=== PATIENT | male | born 1935 | race Caucasian/White ===

== ENCOUNTER 2016-04-24 15:12 | Emergency (ER) | payer MEDICARE, OTHER ==
[2016-04-24] MEDS ORDERED: Bacitracin Oint 1 GM U/D Packet TOP ONE (15:27)
[2016-04-24 16:05] LABS: CHLORIDE,CL 104 mmol/L (98-107); SODIUM,NA 139 mmol/L (136-145)
[2016-04-24] MEDS ORDERED: Lidocaine 1% with EPINEPHrine 1:100,000 20 ML MDV INFILT ONE (16:16)
[2016-04-24 17:07] VITALS: BP 142/82
--- NOTE | 2016-04-24 18:17 | ER ---
Date of Service: 04/24/2016 SUBJECTIVE: Wiliam presents to the emergency room with a fall and laceration to his forehead. The patient was initially seen by Juma Munoz. Please refer to his documentation regarding history of present illness, physical exam, and past medical history. The patient had his labs drawn and was back from CT as I came in for shift change. LABORATORY DATA: WBC is 6.8, hemoglobin is 11.5, platelets are 193. Chemistry; sodium is 139, potassium is 4.6, chloride is 104, bicarb is 26, BUN is 17, creatinine is 1.3, GFR is 53, glucose is 147, calcium is 8.7, corrected calcium is 9.1, magnesium is 2.1, total bilirubin is 0.5, AST is 32, ALT is 31, alkaline phosphatase is 100, total protein is 7.2, albumin is 3.5. CT scan of the patient's brain was obtained. It did have evidence of some enlargement of the ventricles which was a chronic finding. 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 There was no CT for comparison but the radiologist felt that there were no findings of acute pathology on the scan. A 12-lead EKG had been obtained and reviewed by Juma Munoz. It did show a left bundle-branch block at a rate of [address] or T-wave abnormalities. EMERGENCY ROOM COURSE: The laceration was cleansed with Shur-Clens and chlorhexidine. The laceration was anesthetized with a total of 3 mL of 1% lidocaine with epi. The patient's face was prepped and draped in usual sterile fashion. A total of 3 interrupted 4-0 nylon sutures was used to close the laceration. The laceration was bleeding briskly but excellent hemostasis and wound approximation was achieved with suturing. There was some small abrasion around the laceration that continued to ooze but was controlled with a large Band-Aid. The patient tolerated this well. He remained stable in my care in the emergency room. ASSESSMENT: Fall with 1 cm laceration to forehead. PLAN: The patient will be discharged. Sutures out in 12 days. He is to return to the emergency room if he develops any headache, confusion, difficulties with speech, ambulation, or other worrisome signs or symptoms. He should keep the bandage on the laceration for approximately 24 hours and then keep the area open to the air to improve healing. All questions were answered. MWK: 04/24/2016 16:53:53 MODL: 04/24/2016 18:13:01 /[id number]
--- NOTE | 2016-04-27 10:01 | ER ---
Date of Service: 04/24/2016 REASON FOR VISIT: Fall. SUBJECTIVE/HISTORY: An 80-year-old white male, brought in by EMS. He sustained a fall at the [employer] this afternoon when he was trying to get inside. He told the EMS that he stumbled and fell and hit his head against one of the brick pillars. He told me that he got dizzy and fell. He denied any loss of consciousness, did not pass out. Does complain of a headache. Has a small laceration above the right eye and forehead area just above the eyebrow. PAST MEDICAL HISTORY: Reviewed on the electronic health record and includes hypertension, diabetes, dementia, past history of C. diff. MEDICATIONS: Noted in electronic health record, and they are yet to be updated from the [facility]. ALLERGIES: Intolerance to statins. SOCIAL HISTORY: The patient resides at the [facility] in [place]. Medication list from them is pending. REVIEW OF SYSTEMS: He denies any arm or leg discomfort. No numbness or tingling reported. OBJECTIVE: General: He is alert, lying in bed. Vital Signs: He vital signs in the EMS were stable. Blood pressure 172/87, pulse of 63, O2 saturation 98% on room air. HEENT: Pupils are unremarkable. TMs are negative. Throat is clear. NECK: No adenopathy. C-spine is nontender. Normal range of motion of the neck without pain. HEART: Regular rate and rhythm. LUNGS: Clear to auscultation. Chest wall is nontender. ABDOMEN: Soft, nontender. No masses. EXTREMITIES: Warm and dry. There is trace to 1+ lower peripheral edema. NEUROLOGICAL: Cranial nerves intact. Sensation is intact. Motor function is intact. He moves all 4 extremities equally. LABORATORY DATA: White count 6.8, hemoglobin 11.5. Other labs are pending. EKG shows a sinus rhythm, rate of 59, left bundle branch block. He has had a left bundle branch block on previous EKGs. CT scan of his head is pending. He does have a 1-cm laceration just above the right eyebrow on the forehead. This is yet to be repaired. ASSESSMENT: 1. Fall with head injury. 2. Laceration. PLAN: The patient is signed out to Juan Alberto Perales at 1600 hours. He will review the EKG, other labs, repair the laceration and make final disposition. See his dictation for additional details. FM: 04/24/2016 15:56:30 MODL: 04/24/2016 19:10:29 /[id number]
== END 2016-04-24 17:05 | disposition home or self-care (01) ==
LOC: VM.ED 15:12
DX: S01.81XA Laceration without foreign body of other part of head, initial encounter (principal); S09.90XA Unspecified injury of head, initial encounter; I10 Essential (primary) hypertension; E11.9 Type 2 diabetes mellitus without complications; F03.90 Unspecified dementia, unspecified severity, without behavioral disturbance, psychotic disturbance, mood disturbance, and anxiety; W18.09XA Striking against other object with subsequent fall, initial encounter
CPT/HCPCS: 12011; 36415; 70450; 80053; 83735; 85025; 93005; 94760; 99282-GF-25; 99285

== ENCOUNTER 2016-07-24 05:40 | Observation (INO) | payer MEDICARE, OTHER ==
--- NOTE | 2016-07-24 06:21 | EDM.PDOC ---
[id number] 4d Frequent falls, numerous skin tears Time Seen by Provider: 07/24/16 05:50 Source of Information: Reports: Patient, EMS Notes Reviewed, Old Records, RN, RN Notes Reviewed History Limitations: Reports: No Limitations - History of Present Illness INITIAL COMMENTS - FREE TEXT/NARRATIVE: Patient is brought to the ED at [facility] via EMS from Assisted Living for concerns of frequent falling over the past 12-24 hours. According to staff, the patient has fallen several times. Patient was found this morning sleeping on the bathroom floor. EMS was called and patient sent to ED for further evaluation. Patient is a poor historian. Patient thinks he is falling because he has "bad eye sight." Patient denies any pain. No headache. Patient states his legs chronically feel weak. Patient denies any problems with BM's or urination. Patient believes he is eating and drinking well. Patient states he was recently started on a new medication and he thinks the new med is causing some balance issues. Assisted living staff state they believe he seems more confused. Onset: Unknown/Unsure - Related Data Allergies Allergy/AdvReac Type Severity Reaction Status Date / Time Ohbeklu-Iqf-Tvy Reductase AdvReac Jaundice Verified 07/24/16 06:04 Inhibitor Home Meds: Home Meds Aspirin [Ecotrin] 81 mg PO DAILY 07/29/14 [History] Dextromethorphan/guaiFENesin [Robitussin DM] 10 ml PO QID PRN 07/29/14 [History] Metoprolol Tartrate [Lopressor] 75 mg PO BID 07/29/14 [History] Sertraline [Zoloft] 100 mg PO DAILY 07/29/14 [History] Nitroglycerin [Nitro-Dur 0.4 MG/Hr] 0.4 mg TRDERM DAILY #7 patch 08/01/14 [Rx] hydrALAZINE [Apresoline] 25 mg PO TID 08/26/14 [History] Lisinopril 40 mg PO DAILY #1 08/29/14 [Rx] Magnesium Hydroxide [Milk of Magnesia] 30 ml PO DAILY PRN 1 Days 08/29/14 [Rx] Acetaminophen [Acetaminophen Extra Strength] 1,000 mg PO Q6H PRN 05/20/15 [ History] Finasteride [Proscar] 5 mg PO BEDTIME 05/20/15 [History] Magnesium Oxide 420 mg PO DAILY 05/20/15 [History] Tamsulosin [Flomax] 0.4 mg PO DAILY 05/20/15 [History] Pantoprazole [ProTONIX] 40 mg PO DAILY@0700 #30 tab.cr 06/04/15 [Rx] Remove Patch 1 ea TRDERM BEDTIME each 07/06/15 [Rx] Chlorpheniramine Maleate 4 mg PO DAILY PRN 07/24/16 [History] Insulin Glarg,Human.Rec.Analog [LantUS] 10 unit SUBCUT BEDTIME 07/24/16 [History ] L.acidoph,Paracasei, B.lactis [Probiotic] 1 each PO DAILY 07/24/16 [History] Levofloxacin 500 mg PO BEDTIME 07/24/16 [History] Loperamide [Imodium] 2 mg PO Q4H PRN 07/24/16 [History] Potassium Chloride [Klor-Con M20] 40 meq PO BID 07/24/16 [History] Sodium Chloride 0.65% [[place] Nasal [place]] 1 spray NASBOTH DAILY PRN 07/24/16 [ History] Vit A/Vit C/Vit E/Zinc/Copper [Preservision] 1 tab PO BID 07/24/16 [History] amLODIPine [Norvasc] 5 mg PO DAILY 07/24/16 [History] Past Medical History HEENT History: Reports: Hard of Hearing, Macular Degeneration Cardiovascular History: Reports: High Cholesterol, Hypertension Gastrointestinal History: Reports: Colon Polyp, Diverticulosis Other Gastrointestinal History: pancreas disease. dysphagia Genitourinary History: Reports: Diabetic Nephropathy, Prostate Disorder Musculoskeletal History: Reports: Back Pain, Chronic Other Musculoskeletal History: weakness Endocrine/Metabolic History: Reports: Diabetes, Type II - Infectious Disease History Infectious Disease History: Reports: C-Difficile - Past Surgical History Male Surgical History: Reports: TURP-Transurethral Resection of Prostate Social & Family History - Family History Family Medical History: Noncontributory - Tobacco Use Smoking Status *Q: Never Smoker Second Hand Smoke Exposure: No - Alcohol Use Days Per Week of Alcohol Use: 1 Number of Drinks Per Day: 1 Total Drinks Per Week: 1 - Recreational Drug Use Recreational Drug Use: No - Living Situation & Occupation Living situation: Reports: Single, Assisted Living Occupation: Retired ED ROS GENERAL - Review of Systems Review Of Systems: See Below Constitutional: Reports: Weakness. Denies: Fever, Chills Respiratory: Denies: Shortness of Breath, Cough Cardiovascular: Denies: Chest Pain, Palpitations GI/Abdominal: Denies: Abdominal Pain, Diarrhea, Nausea, Vomiting Skin: Reports: Wound (skin tears) Neurological: Reports: Weakness. Denies: Headache, Numbness, Paresthesia, Tingling ED EXAM, GENERAL - Physical Exam Exam: See Below Exam Limited By: No Limitations General Appearance: Alert, No Apparent Distress Eye Exam: Bilateral Eye: Normal Inspection, PERRL Ears: Normal External Exam, Normal Canal, Normal TMs Ear Exam: Bilateral Ear: TM normal Nose: Normal Inspection, Normal Mucosa, No Blood Throat/Mouth: Normal Inspection, Normal Oropharynx, No Airway Compromise Head: Other (Skin tear behind left ear) Neck: Supple Respiratory/Chest: No Respiratory Distress, Lungs Clear, Normal Breath Sounds Cardiovascular: Regular Rate, Rhythm GI/Abdominal: Normal Bowel Sounds, Soft, Non-Tender Neurological: Alert, Disoriented (Oriented to place and self, but disoriented to time) Skin Exam: Warm, Dry, Normal Color, No Rash, Wound/Incision (multiple skin tears over both arms) Course - Vital Signs Last Recorded V/S: Last Vital Signs Temp 37.4 C 07/25/16 05:53 Pulse 65 07/25/16 05:53 Resp 24 H 07/25/16 05:53 BP 154/64 H 07/25/16 05:53 Pulse Ox 96 07/25/16 05:53 - Orders/Labs/Meds Orders: Active Orders 24 hr Category Date Time Status Chest 1V Frontal [CR] Stat Exams 07/24/16 09:40 Taken Head wo Cont [CT] Stat Exams 07/24/16 06:40 Taken Medication Orders Acetaminophen (Tylenol Extra Strength) 1,000 mg PO Q6H PRN PRN Reason: Pain (mild 1-3) Amlodipine Besylate (Norvasc) 5 mg PO DAILY CORNELIUS Aspirin (Halfprin) 81 mg PO DAILY CORNELIUS Finasteride (Proscar) 5 mg PO BEDTIME CORNELIUS Last Admin: 07/24/16 20:17 Dose: 5 mg Guaifenesin/Dextromethorphan (Robitussin Dm) 10 ml PO QID PRN PRN Reason: Cough Lactobacillus Rhamnosus (Culturelle) 1 cap PO DAILY CORNELIUS Levofloxacin (Levaquin) 500 mg PO BEDTIME [facility] Last Admin: 07/24/16 20:15 Dose: 500 mg Loperamide HCl (Imodium) 2 mg PO Q4H PRN PRN Reason: Diarrhea Magnesium Hydroxide (Milk Of Magnesia) 30 ml PO DAILY PRN PRN Reason: Constipation Miscellaneous Information (Remove Patch) 1 ea TRDERM BEDTIME [facility] Last Admin: 07/24/16 20:17 Dose: 1 ea Chlorpheniramine Maleate 4 Mg (Own Supply) 0 mg PO DAILY PRN PRN Reason: Allergies Insulin Glarg,Human. Rec.Analog (Own Supply) 0 unit SUBCUT BEDTIME [facility] Last Admin: 07/24/16 20:16 Dose: 10 unit Vit A/Vit C/Vit E/Zinc/Copper [ Preservision] 1 tab PO BID [facility] Last Admin: 07/24/16 20:19 Dose: 1 tab Nitropatch 0.4mg ( (Own Supply)) 0.4 mg TOP DAILY [facility] Lisinopril 40mg ( (Own Supply)) 0 mg PO DAILY [facility] Hydralazine 25mg ( (Own Supply)) 0 mg PO TID@08,14,20 [facility] Last Admin: 07/24/16 20:16 Dose: 25 mg Admin: 07/24/16 15:35 Dose: 25 mg Metoprolol 75mg (Own (Supply)) 0 mg PO BID [facility] Last Admin: 07/24/16 20:17 Dose: 75 mg Magnesium 420mg (Own (Supply)) 1 tab PO DAILY [facility] Pantoprazole Sodium (Protonix) 40 mg PO DAILY@0700 [facility] Last Admin: 07/25/16 06:02 Dose: 40 mg Potassium Chloride (Klor-Con M20) 40 meq PO BID [facility] Sertraline HCl (Zoloft) 100 mg PO DAILY [facility] Sodium Chloride ([place] Nasal [place]) 0 ml NASBOTH DAILY PRN PRN Reason: Nasal Dryness Sodium Chloride (Saline Flush) 10 ml FLUSH ASDIRECTED PRN PRN Reason: Keep Vein Open Tamsulosin HCl (Flomax) 0.4 mg PO DAILY [facility] Labs: Laboratory Tests 07/24/16 07/24/16 07/24/16 Range/Units 06:50 06:50 09:17 WBC 15.1 H (4.0-10.0) x10^3/uL RBC 3.75 L (4.5-6.0) x10^6/uL Hgb 11.8 L (14.0-18.0) g/dL Hct 35.5 L (40.0-52.0) % MCV 94.7 H D (78.0-93.0) fL MCH 31.5 (26.0-32.0) pg MCHC 33.2 (32.0-36.0) g/dL RDW Coeff of Carlito 14.9 (10.0-15.0) % Plt Count 214 (130-400) x10^3/uL Neut % (Auto) 90.6 H (50.0-80.0) % Lymph % (Auto) 3.3 L (25.0-50.0) % Rush % (Auto) 5.9 (2.0-11.0) % Eos % (Auto) 0.1 (0.0-4.0) % Baso % (Auto) 0.1 L (0.2-1.2) % Sodium 141 (136-145) mmol/L Potassium 5.7 H (3.5-5.1) mmol/L Chloride 107 (98-107) mmol/L Carbon Dioxide 20 L (21-32) mmol/L BUN 34 H (7-18) mg/dL Creatinine 2.1 H (0.70-1.30) mg/dL Est Cr Clr Drug Dosing TNP Estimated GFR (MDRD) 30 Glucose 112 H (74-106) mg/dL Calcium 9.2 (8.5-10.1) mg/dL Urine Color Dark yellow H (YELLOW) Urine Appearance Clear (CLEAR) Urine pH 5.5 (5.0-8.0) Ur Specific [place] 1.020 Urine Protein 100 H (NEGATIVE) mg/dL Urine Glucose (UA) Negative (NEGATIVE) mg/dL Urine Ketones 15 H (NEGATIVE) mg/dL Urine Occult Blood Moderate H (NEGATIVE) Urine Nitrite Negative (NEGATIVE) Urine Bilirubin Negative (NEGATIVE) Urine Urobilinogen 0.2 (0.2) EU/dL Ur Leukocyte Esterase Negative (NEGATIVE) Urine RBC 5-10 H (NOT SEEN) /HPF Urine WBC 0-5 (NOT SEEN) /HPF Ur Squamous Epith Cells Many H (NEGATIVE) /HPF Urine Bacteria Not seen (NEGATIVE) /HPF Hyaline Casts Rare H (NEGATIVE) /HPF Urine Mucus Not seen (NEGATIVE) /LPF Meds: Medications Generic Name Dose Route Start Last Admin Trade Name Freq PRN Reason Stop Dose Admin Acetaminophen 1,000 mg 07/24/16 14:08 Tylenol Extra Strength PO Q6H PRN Pain (mild 1-3) Amlodipine Besylate 5 mg 07/25/16 08:00 Norvasc PO DAILY [facility] Aspirin 81 mg 07/25/16 08:00 Halfprin PO DAILY CORNELIUS Finasteride 5 mg 07/24/16 20:00 07/24/16 20:17 Proscar PO 5 mg BEDTIME CORNELIUS Administration Guaifenesin/Dextromethorphan 10 ml 07/24/16 14:08 Robitussin Dm PO QID PRN Cough Lactobacillus Rhamnosus 1 cap 07/25/16 08:00 Culturelle PO DAILY CORNELIUS Levofloxacin 500 mg 07/24/16 20:00 07/24/16 20:15 Levaquin PO 500 mg BEDTIME CORNELIUS Administration Loperamide HCl 2 mg 07/24/16 14:08 Imodium PO Q4H PRN Diarrhea Magnesium Hydroxide 30 ml 07/24/16 14:08 Milk Of Magnesia PO DAILY PRN Constipation Miscellaneous Information 1 ea 07/24/16 20:00 07/24/16 20:17 Remove Patch TRDERM 1 ea BEDTIME CORNELIUS Administration Chlorpheniramine 0 mg 07/24/16 14:08 Maleate 4 Mg (Own PO Supply) DAILY PRN Allergies Insulin Glarg,Human. 0 unit 07/24/16 20:00 07/24/16 20:16 Rec.Analog (Own SUBCUT 10 unit Supply) BEDTIME CORNELIUS Administration Vit A/Vit C/Vit E/ 1 tab 07/24/16 20:00 07/24/16 20:19 Zinc/Copper [ PO 1 tab Preservision] BID CORNELIUS Administration Nitropatch 0.4mg ( 0.4 mg 07/25/16 08:00 Own Supply) TOP DAILY CORENLIUS Lisinopril 40mg ( 0 mg 07/25/16 08:00 Own Supply) PO DAILY CORNELIUS Hydralazine 25mg ( 0 mg 07/24/16 14:45 07/24/16 20:16 Own Supply) PO 25 mg TID@08,14,20 CORNELIUS Administration Metoprolol 75mg (Own 0 mg 07/24/16 20:00 07/24/16 20:17 Supply) PO 75 mg BID CORNELIUS Administration Magnesium 420mg (Own 1 tab 07/25/16 08:00 Supply) PO DAILY CORNELIUS Pantoprazole Sodium 40 mg 07/25/16 07:00 07/25/16 06:02 Protonix PO 40 mg DAILY@0700 CORNELIUS Administration Potassium Chloride 40 meq 07/25/16 08:00 Klor-Con M20 PO BID CORNELIUS Sertraline HCl 100 mg 07/25/16 08:00 Zoloft PO DAILY CORNELIUS Sodium Chloride 0 ml 07/24/16 14:08 [place] Nasal [place] NASBOTH DAILY PRN Nasal Dryness Sodium Chloride 10 ml 07/24/16 14:16 Saline Flush FLUSH ASDIRECTED PRN Keep Vein Open Tamsulosin HCl 0.4 mg 07/25/16 08:00 Flomax PO DAILY CORNELIUS Discontinued Medications Generic Name Dose Route Start Last Admin Trade Name Freq PRN Reason Stop Dose Admin Sodium Chloride 1,000 mls @ 100 mls/hr 07/24/16 14:16 07/24/16 15:47 Normal Saline IV 07/25/16 00:15 100 mls/hr ONETIME ONE Administration Departure - Departure Time of Disposition: 11:45 Disposition: Refer to Observation Condition: fair Clinical Impression: Frequent falls, Confusion - Discharge Information - Problem List Review Problem List Initiated/Reviewed/Updated: Yes - My Orders Last 24 Hours: My Active Orders 07/24/16 06:40 Head wo Cont [CT] Stat - Assessment/Plan Last 24 Hours: My Active Orders 07/24/16 06:40 Head wo Cont [CT] Stat
[2016-07-24 07:09] LABS: CHLORIDE,CL 107 mmol/L (98-107); SODIUM,NA 141 mmol/L (136-145)
[2016-07-24] MEDS ORDERED: guaiFENesin/Dextromethorphan 100-10 MG/5 ML Soln 10 ML Cup PO PRN (14:08)
[2016-07-24] MEDS ORDERED: CHLORPHENIRAMINE MALEATE 4 MG PO PRN (14:08)
[2016-07-24] MEDS ORDERED: Loperamide 2 MG Cap PO PRN (14:08)
[2016-07-24] MEDS ORDERED: Magnesium Hydroxide 400 MG/5 ML Susp 30 ML Cup PO PRN (14:08)
[2016-07-24] MEDS ORDERED: Sodium Chloride 0.65% Nasal Spray 45 ML Bottle NASBOTH PRN (14:08)
[2016-07-24] MEDS ORDERED: Acetaminophen 500 MG Tab PO PRN (14:08)
[2016-07-24] MEDS ORDERED: Sodium Chloride 0.9% 1,000 ML IV ONE (14:16)
[2016-07-24] MEDS ORDERED: Sodium Chloride 0.9% 10 ML Syringe FLUSH PRN (14:16)
[2016-07-24] MEDS ORDERED: HYDRALAZINE 25 MG PO SCH (14:45)
[2016-07-24] MEDS: HYDRALAZINE 25 MG PO SCH ×2 (15:35→20:16)
[2016-07-24] MEDS ORDERED: METOPROLOL TARTRATE PO SCH (20:00)
[2016-07-24] MEDS: LEVOFLOXACIN 500 MG PO SCH (20:15)
[2016-07-24] MEDS: INSULIN GLARG HUMAN REC ANALOG SUBCUT SCH (20:16)
[2016-07-24] MEDS: METOPROLOL PO SCH (20:17)
[2016-07-24] MEDS: FINASTERIDE 5 MG PO SCH (20:17)
[2016-07-24] MEDS: Vit A/Vit C/Vit E/Zinc/Copper [Preservision] PO SCH (20:19)
[2016-07-25] MEDS: Pantoprazole 40 MG Tab.CR (OWN SUPPLY) PO SCH (06:02)
[2016-07-25] MEDS ORDERED: NITROGLYCERIN 0.4 MG/HR TRDERM SCH (08:00)
[2016-07-25] MEDS ORDERED: Lisinopril 20 MG Tab PO SCH (08:00)
[2016-07-25] MEDS ORDERED: Potassium Chloride 20 MEQ Tab.ER PO SCH (08:00)
[2016-07-25] MEDS ORDERED: Magnesium Oxide 400 MG Tab PO SCH (08:00)
[2016-07-25] MEDS: METOPROLOL PO SCH (08:44)
[2016-07-25] MEDS: MAGNESIUM 420 MG PO SCH (08:45)
[2016-07-25] MEDS: HYDRALAZINE 25 MG PO SCH ×3 (08:46→22:13)
[2016-07-25] MEDS: Aspirin 81 MG Tab.EC (OWN SUPPLY) PO SCH (08:46)
[2016-07-25] MEDS: AMLODIPINE 5 MG PO SCH (08:46)
[2016-07-25] MEDS: LISINOPRIL 40 MG PO SCH (08:47)
[2016-07-25] MEDS: Vit A/Vit C/Vit E/Zinc/Copper [Preservision] PO SCH ×2 (08:48→22:13)
[2016-07-25] MEDS: Tamsulosin 0.4 MG Cap.ER (OWN SUPPLY) PO SCH (08:48)
[2016-07-25] MEDS: NITROGLYCERIN 0.4 MG TOP SCH (08:49)
[2016-07-25] MEDS: Sertraline 100 MG Tab (OWN SUPPLY) PO SCH (08:50)
[2016-07-25] MEDS: Lactobacillus Rhamnosus GG (Probiotic) Cap PO SCH (08:52)
[2016-07-25] MEDS: Sodium Chloride 0.9% 1,000 ML IV SCH (14:10)
--- NOTE | 2016-07-25 14:36 | PCM.PN ---
- General Info Date of Service: 07/25/16 Admission Dx/Problem (Free Text): Acute confusion Frequent falls Subjective Update: Patient offers no specific complaints today. He is significantly confused. He denies any pain. No chest pain or SOB. No urinary or BM complaints. States he is eating pretty good. Is incontinent of urine at times. He does try to get out of bed without assistance. Functional Status: Reports: pain controlled, tolerating diet, urinating Pain Score: 0 - Review of Systems General: Reports: Weakness. Denies: Fever Pulmonary: Denies: shortness of breath, cough Cardiovascular: Denies: Chest Pain, Palpitations Gastrointestinal: Denies: Abdominal pain, Nausea, Vomiting Genitourinary: Reports: incontinence Skin: Reports: bruising, other (skin tears) Neurological: Reports: Confusion. Denies: Headache, Numbness, Paresthesia, Tingling - Patient Data Vitals - most recent: Last Vital Signs Temp 37.0 C 07/25/16 14:00 Pulse 64 07/25/16 14:00 Resp 20 07/25/16 14:00 BP 120/63 07/25/16 14:00 Pulse Ox 96 07/25/16 14:00 Weight - most recent: 69.445 kg I&O - last 24 hours: Intake & Output 07/24/16 07/25/16 07/25/16 22:59 06:59 14:59 Intake Total 134 888 650 Balance 134 888 650 Lab Results last 24 hrs: Laboratory Results - last 24 hr 07/25/16 07/25/16 Range/Units 07:35 07:35 WBC 11.8 H (4.0-10.0) x10^3/uL RBC 3.77 L (4.5-6.0) x10^6/uL Hgb 11.7 L (14.0-18.0) g/dL Hct 35.3 L (40.0-52.0) % MCV 93.6 H (78.0-93.0) fL MCH 31.0 (26.0-32.0) pg MCHC 33.1 (32.0-36.0) g/dL RDW Coeff of Carlito 14.9 (10.0-15.0) % Plt Count 197 (130-400) x10^3/uL Neut % (Auto) 86.9 H (50.0-80.0) % Lymph % (Auto) 5.2 L (25.0-50.0) % Hardy % (Auto) 7.1 (2.0-11.0) % Eos % (Auto) 0.5 (0.0-4.0) % Baso % (Auto) 0.3 (0.2-1.2) % Sodium 141 (136-145) mmol/L Potassium 4.0 D (3.5-5.1) mmol/L Chloride 107 (98-107) mmol/L Carbon Dioxide 22 (21-32) mmol/L BUN 30 H (7-18) mg/dL Creatinine 1.5 H (0.70-1.30) mg/dL Est Cr Clr Drug Dosing 36.73 mL/min Estimated GFR (MDRD) 45 Glucose 77 (74-106) mg/dL Calcium 8.6 (8.5-10.1) mg/dL Corrected Calcium 9.08 (8.5-10.1) mg/dL Total Bilirubin 0.8 (0.2-1.0) mg/dL AST 177 H (15-37) U/L ALT 92 H (16-63) U/L Alkaline Phosphatase 101 (46-116) U/L Total Protein 7.2 (6.4-8.2) g/dL Albumin 3.4 (3.4-5.0) g/dL Globulin 3.8 Albumin/Globulin Ratio 0.89 Med Orders - Current: Current Medications Acetaminophen (Tylenol Extra Strength) 1,000 mg PO Q6H PRN PRN Reason: Pain (mild 1-3) Amlodipine Besylate (Norvasc) 5 mg PO DAILY [facility] Last Admin: 07/25/16 08:46 Dose: 5 mg Aspirin (Halfprin) 81 mg PO DAILY [facility] Last Admin: 07/25/16 08:46 Dose: 81 mg Finasteride (Proscar) 5 mg PO BEDTIME [facility] Last Admin: 07/24/16 20:17 Dose: 5 mg Guaifenesin/Dextromethorphan (Robitussin Dm) 10 ml PO QID PRN PRN Reason: Cough Sodium Chloride (Normal Saline) 1,000 mls @ 75 mls/hr IV ASDIRECTED [facility] Lactobacillus Rhamnosus (Culturelle) 1 cap PO DAILY [facility] Last Admin: 07/25/16 08:52 Dose: 1 cap Levofloxacin (Levaquin) 500 mg PO BEDTIME [facility] Last Admin: 07/24/16 20:15 Dose: 500 mg Loperamide HCl (Imodium) 2 mg PO Q4H PRN PRN Reason: Diarrhea Magnesium Hydroxide (Milk Of Magnesia) 30 ml PO DAILY PRN PRN Reason: Constipation Miscellaneous Information (Remove Patch) 1 ea TRDERM BEDTIME [facility] Last Admin: 07/24/16 20:17 Dose: 1 ea Chlorpheniramine Maleate 4 Mg (Own Supply) 0 mg PO DAILY PRN PRN Reason: Allergies Insulin Glarg,Human. Rec.Analog (Own Supply) 0 unit SUBCUT BEDTIME [facility] Last Admin: 07/24/16 20:16 Dose: 10 unit Vit A/Vit C/Vit E/Zinc/Copper [ Preservision] 1 tab PO BID [facility] Last Admin: 07/25/16 08:48 Dose: 1 tab Nitropatch 0.4mg ( (Own Supply)) 0.4 mg TOP DAILY [facility] Last Admin: 07/25/16 08:49 Dose: 0.4 mg Lisinopril 40mg ( (Own Supply)) 0 mg PO DAILY [facility] Last Admin: 07/25/16 08:47 Dose: 40 mg Hydralazine 25mg ( (Own Supply)) 0 mg PO TID@08,14,20 [facility] Last Admin: 07/25/16 08:46 Dose: 25 mg Metoprolol 75mg (Own (Supply)) 0 mg PO BID [facility] Last Admin: 07/25/16 08:44 Dose: 75 mg Magnesium 420mg (Own (Supply)) 1 tab PO DAILY [facility] Last Admin: 07/25/16 08:45 Dose: 1 tab Pantoprazole Sodium (Protonix) 40 mg PO DAILY@0700 [facility] Last Admin: 07/25/16 06:02 Dose: 40 mg Potassium Chloride (Klor-Con M20) 40 meq PO BID [facility] Last Admin: 07/25/16 08:52 Dose: 40 meq Sertraline HCl (Zoloft) 100 mg PO DAILY [facility] Last Admin: 07/25/16 08:50 Dose: 100 mg Sodium Chloride ([place] Nasal [place]) 0 ml NASBOTH DAILY PRN PRN Reason: Nasal Dryness Sodium Chloride (Saline Flush) 10 ml FLUSH ASDIRECTED PRN PRN Reason: Keep Vein Open Tamsulosin HCl (Flomax) 0.4 mg PO DAILY [facility] Last Admin: 07/25/16 08:48 Dose: 0.4 mg Discontinued Medications Sodium Chloride (Normal Saline) 1,000 mls @ 100 mls/hr IV ONETIME ONE Stop: 07/25/16 00:15 Last Admin: 07/24/16 15:47 Dose: 100 mls/hr - Exam Quality Assessment: skin breakdown General: alert, cooperative, no acute distress HEENT: Pupils equal, Pupils reactive Neck: supple Lungs: Normal respiratory effort, Decreased breath sounds Cardiovascular: Regular Rate, Regular Rhythm, No Murmurs Abdomen: bowel sounds present, soft, no tenderness Extremities: normal pulses, no tenderness/swelling Peripheral Pulses: 2+: Radial (L), Radial (R) Skin: warm, dry, other (multiple skin tears; upper extremities; bilateral lower legs, behind left ear) Wound/Incisions: healing well, dressing dry and intact Neurological: other (Disoriented to place and time; oriented to self only; words sometimes incomprehensible due to poor dentition; weak with standing/ ambulating) - Problem List & Annotations (1) Confusion SNOMED Code(s): 232034451 Code(s): R41.0 - DISORIENTATION, UNSPECIFIED Status: Acute Priority: High Current Visit: Yes (2) Frequent falls SNOMED Code(s): 363102557 Code(s): R29.6 - REPEATED FALLS Status: Acute Priority: Medium Current Visit: Yes (3) Elevated liver enzymes SNOMED Code(s): 077423561, 867009152 Code(s): R74.8 - ABNORMAL LEVELS OF OTHER SERUM ENZYMES Status: Acute Priority: Medium Current Visit: Yes (4) Dehydration SNOMED Code(s): 03007345 Code(s): E86.0 - DEHYDRATION Status: Acute Priority: Medium Current Visit: Yes (5) Dementia SNOMED Code(s): 29477005 Code(s): F03.90 - UNSPECIFIED DEMENTIA WITHOUT BEHAVIORAL DISTURBANCE Status: Chronic Priority: Low Current Visit: No Qualifiers: Dementia type: vascular dementia Dementia behavioral disturbance: without behavioral disturbance Qualified Code(s): F01.50 - Vascular dementia without behavioral disturbance (6) Diabetes mellitus type II, controlled SNOMED Code(s): 76415363 Code(s): E11.9 - TYPE 2 DIABETES MELLITUS WITHOUT COMPLICATIONS Status: Chronic Priority: Low Current Visit: No Qualifiers: Diabetes mellitus complication status: with circulatory complication Diabetes mellitus complication detail: with other circulatory complications Diabetes mellitus half-way insulin use: with rat exterminator use Qualified Code(s) : E11.59 - Type 2 diabetes mellitus with other circulatory complications (7) Skin tear SNOMED Code(s): 425923038 Code(s): OYZ3897 - Status: Acute Priority: Medium Current Visit: Yes (8) Essential hypertension SNOMED Code(s): 44635993 Code(s): I10 - ESSENTIAL (PRIMARY) HYPERTENSION Status: Acute Priority: Low Current Visit: Yes - Problem List Review Problem List Initiated/Reviewed/Updated: Yes - My Orders Last 24 Hours: My Active Orders 07/25/16 13:56 ACETAMINOPHEN [CHEM] Stat AMMONIA [REF] Stat CRP [C-REACTIVE PROTEIN] [CHEM] Routine HEPATITIS PANEL, ACUTE [REF] Stat INR,PT,PROTHROMBIN TIME [COAG] Routine LACTIC ACID [CHEM] Routine MAGNESIUM [CHEM] Routine PHOSPHORUS [CHEM] Routine TSH ULTRASENSITIVE [CHEM] Routine 07/25/16 13:57 VITAMIN B12 [REF] Stat 07/25/16 14:09 POTASSIUM,K [CHEM] Routine 07/25/16 14:15 Sodium Chloride 0.9% [Normal Saline] 1,000 ml IV ASDIRECTED - Plan Plan:: 80-year-old male patient with a past medical history of diabetes, dementia, hypertension, and high cholesterol admitted to the observation unit at [facility] for acute confusion and multiple falls at the assisted-living center. The patient was seen by me yesterday morning in the emergency room and appeared to be mostly oriented at that time. CT scan of the patient's head did not show any acute findings. Laboratory work did show an elevated creatinine and BUN. The patient was therefore admitted for the acute confusion and frequent falls for further monitoring. The patient was seen by physical and occupational therapy, however I do not see any notes in the EMR. We will watch the patient on observation one more day. I will restart the patient's IV fluids as his creatinine level is trending down. The patient did have an elevated potassium level of 5.7, which is now down to 4.0. The patient did have an elevated white blood cell count of 15.7 on admission, therefore we will continue his Levaquin that he was on from assisted living. Given the elevated liver enzymes, I will check his blood work to rule out any acute pathology for the elevated liver enzymes. Also recheck a potassium level. If the potassium level returns higher than 4.0 I will hold his second dose of potassium today. If the patient is more oriented tomorrow, he will be discharged back to assisted living. If the patient is not showing improvement, he will be transitioned to acute care. The patient does need some intense physical therapy to help with strengthening. CXR was repeated today; awaiting results from Radiology. Continue to monitor multiple skin tears and treat as needed. Stop BID Metoprolol and start Toprol XL. Add Accu checks to nursing cares.
[2016-07-25] MEDS ORDERED: LORazepam 2 MG/ML MDV IVPUSH ONE (15:41)
[2016-07-25 16:04] LABS: ACETAMINOPHEN < 10 ug/ml (10-30)
[2016-07-25] MEDS: INSULIN GLARG HUMAN REC ANALOG SUBCUT SCH (19:56)
[2016-07-25] MEDS: LEVOFLOXACIN 500 MG PO SCH (22:14)
[2016-07-25] MEDS: FINASTERIDE 5 MG PO SCH (22:14)
[2016-07-26 06:00] VITALS: BP 157/76
[2016-07-26] MEDS: Sodium Chloride 0.9% 1,000 ML IV SCH (06:00)
[2016-07-26] MEDS: Pantoprazole 40 MG Tab.CR (OWN SUPPLY) PO SCH (06:08)
[2016-07-26] MEDS ORDERED: Potassium Chloride 20 MEQ Tab.ER PO SCH (08:00)
[2016-07-26] MEDS ORDERED: Metoprolol Succinate 50 MG Tab.ER PO SCH (08:00)
[2016-07-26] MEDS: Tamsulosin 0.4 MG Cap.ER (OWN SUPPLY) PO SCH (08:06)
[2016-07-26] MEDS: LISINOPRIL 40 MG PO SCH (08:06)
[2016-07-26] MEDS: HYDRALAZINE 25 MG PO SCH (08:06)
[2016-07-26] MEDS: MAGNESIUM 420 MG PO SCH (08:06)
[2016-07-26] MEDS: Vit A/Vit C/Vit E/Zinc/Copper [Preservision] PO SCH (08:06)
[2016-07-26] MEDS: NITROGLYCERIN 0.4 MG TOP SCH (08:07)
[2016-07-26] MEDS: Aspirin 81 MG Tab.EC (OWN SUPPLY) PO SCH (08:07)
[2016-07-26] MEDS: AMLODIPINE 5 MG PO SCH (08:07)
[2016-07-26] MEDS: Sertraline 100 MG Tab (OWN SUPPLY) PO SCH (08:12)
[2016-07-26] MEDS: Lactobacillus Rhamnosus GG (Probiotic) Cap PO SCH (08:12)
--- NOTE | 2016-07-26 13:30 | PCM.DCSUM1 ---
Discharge Summary - Hospital Course HPI Initial Comments: Patient is brought to the ED at [facility] via EMS from Assisted Living for concerns of frequent falling over the past 12-24 hours. According to staff, the patient has fallen several times. Patient was found this morning sleeping on the bathroom floor. EMS was called and patient sent to ED for further evaluation. Patient is a poor historian. Patient thinks he is falling because he has "bad eye sight." Patient denies any pain. No headache. Patient states his legs chronically feel weak. Patient denies any problems with BM's or urination. Patient believes he is eating and drinking well. Patient states he was recently started on a new medication and he thinks the new med is causing some balance issues. Assisted living staff state they believe he seems more confused. - Discharge Data Discharge Date: 07/26/16 Discharge Disposition: Home, Self-Care 01 Condition: Good - Discharge Diagnosis/Problem(s) (1) Confusion SNOMED Code(s): 034224793 ICD Code: R41.0 - DISORIENTATION, UNSPECIFIED Status: Acute Priority: High Current Visit: Yes (2) Frequent falls SNOMED Code(s): 601994034 ICD Code: R29.6 - REPEATED FALLS Status: Acute Priority: Medium Current Visit: Yes (3) Elevated liver enzymes SNOMED Code(s): 706495417, 789394380 ICD Code: R74.8 - ABNORMAL LEVELS OF OTHER SERUM ENZYMES Status: Acute Priority: Medium Current Visit: Yes (4) Dehydration SNOMED Code(s): 05611811 ICD Code: E86.0 - DEHYDRATION Status: Resolved Priority: Medium Current Visit: Yes (5) Dementia SNOMED Code(s): 34126541 ICD Code: F03.90 - UNSPECIFIED DEMENTIA WITHOUT BEHAVIORAL DISTURBANCE Status: Chronic Priority: Low Current Visit: No Qualifiers: Dementia type: vascular dementia Dementia behavioral disturbance: without behavioral disturbance Qualified Code(s): F01.50 - Vascular dementia without behavioral disturbance (6) Diabetes mellitus type II, controlled SNOMED Code(s): 61650704 ICD Code: E11.9 - TYPE 2 DIABETES MELLITUS WITHOUT COMPLICATIONS Status: Chronic Priority: Low Current Visit: No Qualifiers: Diabetes mellitus complication status: with circulatory complication Diabetes mellitus complication detail: with other circulatory complications Diabetes mellitus wet cotton feeder insulin use: with detention use Qualified Code(s) : E11.59 - Type 2 diabetes mellitus with other circulatory complications (7) Skin tear SNOMED Code(s): 778406958 ICD Code: [id number] - Status: Acute Priority: Medium Current Visit: Yes (8) Essential hypertension SNOMED Code(s): 30105552 ICD Code: I10 - ESSENTIAL (PRIMARY) HYPERTENSION Status: Chronic Priority : Low Current Visit: Yes - Patient Summary/Data Operative Procedure(s) Performed: None Consults: Consultations 07/24/16 13:49 PT Evaluation and Treatment [CONS] Routine 07/24/16 13:50 OT Evaluation and Treatment [CONS] Routine Labs Pending at D/C: None Hospital Course: Overall, patient did well through observation stay. Patient continued to be confused and attempted to climb out of bed several times. No problems with urination or BM's. Patient able to tolerated diet. Patient remained hemodynamically stable. Patient did received one dose of Ativan, which helped tremendous. Patient was able to rest well. Labs remained stable. Awaiting send out labs at time of discharge. - Patient Instructions Diet: Diabetic Diet Activity: As Tolerated, Rest and Relax Today Driving: Do Not Drive Showering/Bathing: May Shower Notify Provider of: Fever, Increased Pain, Nausea and/or Vomiting - Discharge Plan Home Medications: Home Meds Aspirin [Ecotrin] 81 mg PO DAILY 07/29/14 [History] Dextromethorphan/guaiFENesin [Robitussin DM] 10 ml PO QID PRN 07/29/14 [History] Metoprolol Tartrate [Lopressor] 75 mg PO BID 07/29/14 [History] Sertraline [Zoloft] 100 mg PO DAILY 07/29/14 [History] Nitroglycerin [Nitro-Dur 0.4 MG/Hr] 0.4 mg TRDERM DAILY #7 patch 08/01/14 [Rx] hydrALAZINE [Apresoline] 25 mg PO TID 08/26/14 [History] Lisinopril 40 mg PO DAILY #1 08/29/14 [Rx] Magnesium Hydroxide [Milk of Magnesia] 30 ml PO DAILY PRN 1 Days 08/29/14 [Rx] Acetaminophen [Acetaminophen Extra Strength] 1,000 mg PO Q6H PRN 05/20/15 [ History] Finasteride [Proscar] 5 mg PO BEDTIME 05/20/15 [History] Magnesium Oxide 420 mg PO DAILY 05/20/15 [History] Tamsulosin [Flomax] 0.4 mg PO DAILY 05/20/15 [History] Pantoprazole [ProTONIX] 40 mg PO DAILY@0700 #30 tab.cr 06/04/15 [Rx] Remove Patch 1 ea TRDERM BEDTIME each 07/06/15 [Rx] Chlorpheniramine Maleate 4 mg PO DAILY PRN 07/24/16 [History] Insulin Glarg,Human.Rec.Analog [Lantus] 10 unit SUBCUT BEDTIME 07/24/16 [History ] L.acidoph,Paracasei, B.lactis [Probiotic] 1 each PO DAILY 07/24/16 [History] Levofloxacin 500 mg PO BEDTIME 07/24/16 [History] Loperamide [Imodium] 2 mg PO Q4H PRN 07/24/16 [History] Potassium Chloride [Klor-Con M20] 40 meq PO BID 07/24/16 [History] Sodium Chloride 0.65% [[place] Nasal Reading] 1 spray NASBOTH DAILY PRN 07/24/16 [ History] Vit A/Vit C/Vit E/Zinc/Copper [Preservision] 1 tab PO BID 07/24/16 [History] amLODIPine [Norvasc] 5 mg PO DAILY 07/24/16 [History] Hydralazine Own 0 mg PO TID@08,14,20 07/26/16 [Rx] Lisinopril 0 mg PO DAILY 07/26/16 [Rx] Magnesium 420mg 1 tab PO DAILY 07/26/16 [Rx] Metoprolol Succinate [Toprol XL] 100 mg PO DAILY tab.er 07/26/16 [Rx] Nitropatch 0.4 0.4 mg TOP DAILY 07/26/16 [Rx] Potassium Chloride [Klor-Con M20] 40 meq PO DAILY tab.er 07/26/16 [Rx] Referrals: Chery Hurtado DO [Primary Care Provider] - - Discharge Summary/Plan Comment DC Time >30 min.: Yes - General Info Date of Service: 07/26/16 Admission Dx/Problem (Free Text: Acute confusion Frequent falls Functional Status: Reports: pain controlled, tolerating diet, urinating - Review of Systems General: Reports: Weakness Pulmonary: Denies: shortness of breath, cough Cardiovascular: Denies: Chest Pain, Palpitations Gastrointestinal: Denies: Abdominal pain, Nausea, Vomiting Skin: Reports: other (skin tears) Neurological: Reports: Confusion - Patient Data Vitals - Most Recent: Last Vital Signs Temp 36.4 C 07/26/16 05:59 Pulse 71 07/26/16 08:09 Resp 20 07/26/16 05:59 BP 157/76 H 07/26/16 08:09 Pulse Ox 98 07/26/16 05:59 Weight - Most Recent: 69.445 kg I&O - Last 24 hours: Intake & Output 07/25/16 07/26/16 07/26/16 22:59 06:59 14:59 Intake Total 145 961 Balance 145 961 Lab Results - Last 24 hrs: Laboratory Results - last 24 hr 07/25/16 07/25/16 07/25/16 Range/Units 15:12 15:12 15:12 WBC (4.0-10.0) x10^3/uL RBC (4.5-6.0) x10^6/uL Hgb (14.0-18.0) g/dL Hct (40.0-52.0) % MCV (78.0-93.0) fL MCH (26.0-32.0) pg MCHC (32.0-36.0) g/dL RDW Coeff of Carlito (10.0-15.0) % Plt Count (130-400) x10^3/uL Add Manual Diff Neutrophils % (Manual) (50-80) % Lymphocytes % (Manual) (25-50) % Monocytes % (Manual) (2-11) % Eosinophils % (Manual) (0-4) % Basophils % (Manual) (0-1) % Hypersegmented Neuts Platelet Estimate PT 13.7 H (10.0-12.8) SEC INR 1.2 L (2.0-3.5) Sodium (136-145) mmol/L Potassium (3.5-5.1) mmol/L Chloride (98-107) mmol/L Carbon Dioxide (21-32) mmol/L BUN (7-18) mg/dL Creatinine (0.70-1.30) mg/dL Est Cr Clr Drug Dosing mL/min Estimated GFR (MDRD) Glucose (74-106) mg/dL POC Glucose (74-106) mg/dL Lactic Acid 1.2 (0.4-2.0) mmol/L Calcium (8.5-10.1) mg/dL Corrected Calcium (8.5-10.1) mg/dL Phosphorus (2.6-4.7) mg/dL Magnesium (1.8-2.4) mg/dL Total Bilirubin (0.2-1.0) mg/dL AST (15-37) U/L ALT (16-63) U/L Alkaline Phosphatase (46-116) U/L C-Reactive Protein 6.6 H (<=0.9) mg/dL Total Protein (6.4-8.2) g/dL Albumin (3.4-5.0) g/dL Globulin Albumin/Globulin Ratio TSH, Ultra Sensitive (0.358-3.74) uIU/mL Acetaminophen (10-30) ug/ml 07/25/16 07/25/16 07/25/16 Range/Units 15:12 15:12 16:38 WBC (4.0-10.0) x10^3/uL RBC (4.5-6.0) x10^6/uL Hgb (14.0-18.0) g/dL Hct (40.0-52.0) % MCV (78.0-93.0) fL MCH (26.0-32.0) pg MCHC (32.0-36.0) g/dL RDW Coeff of Carlito (10.0-15.0) % Plt Count (130-400) x10^3/uL Add Manual Diff Neutrophils % (Manual) (50-80) % Lymphocytes % (Manual) (25-50) % Monocytes % (Manual) (2-11) % Eosinophils % (Manual) (0-4) % Basophils % (Manual) (0-1) % Hypersegmented Neuts Platelet Estimate PT (10.0-12.8) SEC INR (2.0-3.5) Sodium (136-145) mmol/L Potassium 4.5 (3.5-5.1) mmol/L Chloride (98-107) mmol/L Carbon Dioxide (21-32) mmol/L BUN (7-18) mg/dL Creatinine (0.70-1.30) mg/dL Est Cr Clr Drug Dosing mL/min Estimated GFR (MDRD) Glucose (74-106) mg/dL POC Glucose 91 (74-106) mg/dL Lactic Acid (0.4-2.0) mmol/L Calcium (8.5-10.1) mg/dL Corrected Calcium (8.5-10.1) mg/dL Phosphorus 3.6 (2.6-4.7) mg/dL Magnesium 2.0 (1.8-2.4) mg/dL Total Bilirubin (0.2-1.0) mg/dL AST (15-37) U/L ALT (16-63) U/L Alkaline Phosphatase (46-116) U/L C-Reactive Protein (<=0.9) mg/dL Total Protein (6.4-8.2) g/dL Albumin (3.4-5.0) g/dL Globulin Albumin/Globulin Ratio TSH, Ultra Sensitive 2.229 (0.358-3.74) uIU/mL Acetaminophen < 10 L (10-30) ug/ml 07/25/16 07/26/16 07/26/16 Range/Units 20:28 06:10 07:33 WBC 7.8 (4.0-10.0) x10^3/uL RBC 3.38 L (4.5-6.0) x10^6/uL Hgb 10.6 L (14.0-18.0) g/dL Hct 32.1 L (40.0-52.0) % MCV 95.0 H (78.0-93.0) fL MCH 31.4 (26.0-32.0) pg MCHC 33.0 (32.0-36.0) g/dL RDW Coeff of Carlito 14.9 (10.0-15.0) % Plt Count 131 (130-400) x10^3/uL Add Manual Diff Yes Neutrophils % (Manual) 86 H (50-80) % Lymphocytes % (Manual) 4 L (25-50) % Monocytes % (Manual) 8 (2-11) % Eosinophils % (Manual) 1 (0-4) % Basophils % (Manual) 1 (0-1) % Hypersegmented Neuts Few H Platelet Estimate Adequate PT (10.0-12.8) SEC INR (2.0-3.5) Sodium (136-145) mmol/L Potassium (3.5-5.1) mmol/L Chloride (98-107) mmol/L Carbon Dioxide (21-32) mmol/L BUN (7-18) mg/dL Creatinine (0.70-1.30) mg/dL Est Cr Clr Drug Dosing mL/min Estimated GFR (MDRD) Glucose (74-106) mg/dL POC Glucose 92 61 L (74-106) mg/dL Lactic Acid (0.4-2.0) mmol/L Calcium (8.5-10.1) mg/dL Corrected Calcium (8.5-10.1) mg/dL Phosphorus (2.6-4.7) mg/dL Magnesium (1.8-2.4) mg/dL Total Bilirubin (0.2-1.0) mg/dL AST (15-37) U/L ALT (16-63) U/L Alkaline Phosphatase (46-116) U/L C-Reactive Protein (<=0.9) mg/dL Total Protein (6.4-8.2) g/dL Albumin (3.4-5.0) g/dL Globulin Albumin/Globulin Ratio TSH, Ultra Sensitive (0.358-3.74) uIU/mL Acetaminophen (10-30) ug/ml 07/26/16 07/26/16 Range/Units 07:33 11:17 WBC (4.0-10.0) x10^3/uL RBC (4.5-6.0) x10^6/uL Hgb (14.0-18.0) g/dL Hct (40.0-52.0) % MCV (78.0-93.0) fL MCH (26.0-32.0) pg MCHC (32.0-36.0) g/dL RDW Coeff of Carlito (10.0-15.0) % Plt Count (130-400) x10^3/uL Add Manual Diff Neutrophils % (Manual) (50-80) % Lymphocytes % (Manual) (25-50) % Monocytes % (Manual) (2-11) % Eosinophils % (Manual) (0-4) % Basophils % (Manual) (0-1) % Hypersegmented Neuts Platelet Estimate PT (10.0-12.8) SEC INR (2.0-3.5) Sodium 140 (136-145) mmol/L Potassium 4.0 (3.5-5.1) mmol/L Chloride 109 H (98-107) mmol/L Carbon Dioxide 18 L (21-32) mmol/L BUN 28 H (7-18) mg/dL Creatinine 1.2 (0.70-1.30) mg/dL Est Cr Clr Drug Dosing 45.92 mL/min Estimated GFR (MDRD) 58 Glucose 129 H (74-106) mg/dL POC Glucose 92 (74-106) mg/dL Lactic Acid (0.4-2.0) mmol/L Calcium 8.2 L (8.5-10.1) mg/dL Corrected Calcium 9.16 (8.5-10.1) mg/dL Phosphorus (2.6-4.7) mg/dL Magnesium (1.8-2.4) mg/dL Total Bilirubin 0.6 (0.2-1.0) mg/dL AST 108 H (15-37) U/L ALT 79 H (16-63) U/L Alkaline Phosphatase 85 (46-116) U/L C-Reactive Protein (<=0.9) mg/dL Total Protein 6.2 L (6.4-8.2) g/dL Albumin 2.8 L (3.4-5.0) g/dL Globulin 3.4 Albumin/Globulin Ratio 0.82 TSH, Ultra Sensitive (0.358-3.74) uIU/mL Acetaminophen (10-30) ug/ml Med Orders - Current: Current Medications Acetaminophen (Tylenol Extra Strength) 1,000 mg PO Q6H PRN PRN Reason: Pain (mild 1-3) Amlodipine Besylate (Norvasc) 5 mg PO DAILY [facility] Last Admin: 07/26/16 08:07 Dose: 5 mg Aspirin (Halfprin) 81 mg PO DAILY [facility] Last Admin: 07/26/16 08:07 Dose: 81 mg Finasteride (Proscar) 5 mg PO BEDTIME [facility] Last Admin: 07/25/16 22:14 Dose: 5 mg Guaifenesin/Dextromethorphan (Robitussin Dm) 10 ml PO QID PRN PRN Reason: Cough Sodium Chloride (Normal Saline) 1,000 mls @ 75 mls/hr IV ASDIRECTED [facility] Last Admin: 07/26/16 06:00 Dose: 75 mls/hr Lactobacillus Rhamnosus (Culturelle) 1 cap PO DAILY [facility] Last Admin: 07/26/16 08:12 Dose: 1 cap Levofloxacin (Levaquin) 500 mg PO BEDTIME [facility] Last Admin: 07/25/16 22:14 Dose: 500 mg Loperamide HCl (Imodium) 2 mg PO Q4H PRN PRN Reason: Diarrhea Magnesium Hydroxide (Milk Of Magnesia) 30 ml PO DAILY PRN PRN Reason: Constipation Metoprolol Succinate (Toprol Xl) 100 mg PO DAILY [facility] Last Admin: 07/26/16 08:09 Dose: 100 mg Miscellaneous Information (Remove Patch) 1 ea TRDERM BEDTIME [facility] Last Admin: 07/25/16 20:04 Dose: 1 ea Chlorpheniramine Maleate 4 Mg (Own Supply) 0 mg PO DAILY PRN PRN Reason: Allergies Insulin Glarg,Human. Rec.Analog (Own Supply) 0 unit SUBCUT BEDTIME [facility] Last Admin: 07/25/16 19:56 Dose: 10 unit Vit A/Vit C/Vit E/Zinc/Copper [ Preservision] 1 tab PO BID [facility] Last Admin: 07/26/16 08:06 Dose: 1 tab Nitropatch 0.4mg ( (Own Supply)) 0.4 mg TOP DAILY [facility] Last Admin: 07/26/16 08:07 Dose: 0.4 mg Lisinopril 40mg ( (Own Supply)) 0 mg PO DAILY [facility] Last Admin: 07/26/16 08:06 Dose: 40 mg Hydralazine 25mg ( (Own Supply)) 0 mg PO TID@08,14,20 [facility] Last Admin: 07/26/16 08:06 Dose: 25 mg Magnesium 420mg (Own (Supply)) 1 tab PO DAILY [facility] Last Admin: 07/26/16 08:06 Dose: 1 tab Pantoprazole Sodium (Protonix) 40 mg PO DAILY@0700 [facility] Last Admin: 07/26/16 06:08 Dose: 40 mg Potassium Chloride (Klor-Con M20) 40 meq PO DAILY [facility] Last Admin: 07/26/16 08:11 Dose: 40 meq Sertraline HCl (Zoloft) 100 mg PO DAILY [facility] Last Admin: 07/26/16 08:12 Dose: 100 mg Sodium Chloride ([place] Nasal Reading) 0 ml NASBOTH DAILY PRN PRN Reason: Nasal Dryness Sodium Chloride (Saline Flush) 10 ml FLUSH ASDIRECTED PRN PRN Reason: Keep Vein Open Last Admin: 07/25/16 19:55 Dose: 10 ml Tamsulosin HCl (Flomax) 0.4 mg PO DAILY [facility] Last Admin: 07/26/16 08:06 Dose: 0.4 mg Discontinued Medications Sodium Chloride (Normal Saline) 1,000 mls @ 100 mls/hr IV ONETIME ONE Stop: 07/25/16 00:15 Last Admin: 07/24/16 15:47 Dose: 100 mls/hr Lorazepam (Ativan) 1 mg IVPUSH ONETIME ONE Stop: 07/25/16 15:42 Last Admin: 07/25/16 15:45 Dose: 1 mg Metoprolol 75mg (Own (Supply)) 0 mg PO BID [facility] Last Admin: 07/25/16 08:44 Dose: 75 mg Potassium Chloride (Klor-Con M20) 40 meq PO BID [facility] Last Admin: 07/25/16 08:52 Dose: 40 meq - Exam Quality Assessment: Reports: skin breakdown General: Reports: alert, cooperative HEENT: Reports: Pupils equal, Pupils reactive, Mucous membr. moist/pink Neck: Reports: supple Lungs: Reports: Clear to auscultation, Normal respiratory effort, Decreased breath sounds Cardiovascular: Reports: Regular Rate, Regular Rhythm Abdomen: Reports: bowel sounds present, soft, no tenderness Skin: Reports: warm, dry, other (multiple skin tears on upper extremities and behind left ear and right lower leg) Neurological: Reports: no new focal deficit, other (confused) *Q Meaningful Use (DIS) - VTE *Q VTE Criteria *Q: VTE Mechanical Contraindications *Q: At Risk for Falls - Stroke *Q Stroke Criteria *Q: - AMI *Q AMI Criteria *Q:
--- NOTE | 2016-07-27 08:02 | ER ---
Date of Service: 07/24/2016 SUBJECTIVE: Wiliam presents to the emergency room with complaints of fall. The patient apparently has been falling recently and is a resident at the [facility] in [place]. Please refer to Bryan Dos Santos's documentation regarding the history of present illness of this patient. Staff states that he was seen in the clinic yesterday and was found to have an elevated white count of approximately 15,000. He was started on oral Levaquin and did subsequently suffer another fall in the night last night. It is unknown if he has struck his head. Subsequently, till now Bryan Dos Santos did order a CT scan and the results were pending at shift change. PAST MEDICAL HISTORY: 1. Macular degeneration. 2. Hyperlipidemia. 3. Sensorineural hearing loss. 4. Dyslipidemia. 5. Colon polyps. 6. Diverticulosis. 7. Pancreatic mass. 8. Dysphagia. 9. Diabetic nephropathy. 10.BPH. 11.Back pain. 12.Chronic weakness. 13.Type 2 diabetes mellitus. 14.History of C. diff. SOCIAL HISTORY: He lives in [facility]. He is a nonsmoker and a nondrinker. He is single. He does have a brother who lives here in [place]. REVIEW OF SYSTEMS: General: No fever or chills. HEENT: No sore throat, rhinorrhea, or congestion. Respiratory: No shortness of breath. Cardiac: Denies any substernal chest pain. No jaw, arm, neck, or back pain. GI: No nausea, vomiting, or diarrhea. No melena, hematochezia, or hematemesis. : Denies any dysuria. Musculoskeletal: No myalgias or arthralgias. Neurologic: Again he does complain of global weakness. PHYSICAL EXAMINATION: General: This is an 80-year-old male patient, who is in no acute distress. Vital Signs: Blood pressure is 132/67, pulse rate 64, respiratory rate is 14, and O2 saturations 97%. Skin: Warm, pale, and dry. HEENT. Head is normocephalic. He has numerous open lesions to his scalp what appears to be erythema and fine raised rash that he appears to been scratching. Ears; TMs are clear. Mouth; oral mucosa is dry. Lungs: Clear to auscultation. Heart: Regular rate and rhythm. Abdomen: Soft and nontender. There is no hepatosplenomegaly noted. There are no masses noted. Extremities: He does have multiple skin tears to both arms. Neurologic: He is some awake and does answer questions, but is quite confused. His speech is fluent. He is able to ambulate with assistance or with a walker. LABORATORY DATA: WBCs 15.1, hemoglobin is 11.8, platelets are 214. Chemistry; sodium is 141, potassium is 5.7, chloride is 107, bicarb is 20, BUN is 34, creatinine is 2.1, GFR is 30, glucose is 112, and calcium is 9.2. Urinalysis reveals specific gravity of 1.020, protein of 100, did have a dark yellow specimen. He did have 15 ketones, moderate occult blood. Negative nitrates and bilirubin. Negative leukocyte esterase. The CT scan of the patient's brain was obtained. There was no evidence of any acute pathology. Radiographs of the patient's chest per obtained. There was no evidence of any acute infiltrate or other pathology. ASSESSMENT: Weakness and frequent falls. PLAN: A decision was made to have the patient admitted on observation status and followed by physical therapy for evaluation. I did discuss the findings with the [facility]. We will anticipate discharge tomorrow. I did start him on normal saline at 100 mL/h. All questions were answered. MWK: 07/24/2016 17:44:48 MODL: 07/24/2016 18:22:37 /[id number]
--- NOTE | 2016-07-30 08:40 | ER ---
Date of Service: 07/24/2016 ADDENDUM: Please note that, the patient's emergency room notes can be used as the admission H and P. MWK: 07/29/2016 17:09:23 MODL: 07/29/2016 22:30:21 /[id number]
== END 2016-07-26 14:45 | disposition home or self-care (01) ==
LOC: VM.ED 05:40 → VM.MS 11:29
PROVIDERS: ADMIT Physician Assistant; ATTEND Physician Assistant
DX: R41.0 Disorientation, unspecified (principal); R29.6 Repeated falls; R74.8 Abnormal levels of other serum enzymes; R94.5 Abnormal results of liver function studies; E86.0 Dehydration; F01.50 Vascular dementia, unspecified severity, without behavioral disturbance, psychotic disturbance, mood disturbance, and anxiety; E78.5 Hyperlipidemia, unspecified; E11.21 Type 2 diabetes mellitus with diabetic nephropathy; I10 Essential (primary) hypertension; Z79.82 Long term (current) use of aspirin; Z79.899 Other long term (current) drug therapy; Z88.8 Allergy status to other drugs, medicaments and biological substances; Z79.4 Long term (current) use of insulin; Z98.890 Other specified postprocedural states
CPT/HCPCS: 36415; 70450; 71010; 71020; 80048; 80053; 80074; 81001; 82140; 82607; 82962; 83605; 83735; 84100; 84132; 84443; 85025; 85610; 86140; 96361; 96374; 97161; 99217; 99219; 99225; 99285; A9270; G0378; G0480; J2060; J7030; J7050

== ENCOUNTER 2016-09-10 21:50 | Emergency (ER) | payer MEDICARE, OTHER ==
[2016-09-10 23:00] LABS: CHLORIDE,CL 104 mmol/L (98-107); SODIUM,NA 140 mmol/L (136-145)
[2016-09-10 23:17] VITALS: BP 181/89
--- NOTE | 2016-09-14 08:23 | ER ---
Date of Service: 09/10/2016 SUBJECTIVE: Wiliam presents to the emergency room via ambulance. Staff stated that they did a bedside blood glucose on the patient this evening and his blood sugar was found to be approximately 460. They subsequently contacted EMS and had the patient transported to the emergency room. I was unable to get a hold of the assisted living facility to see what his blood sugar was earlier as they would not answer the phone. The patient was unable to relate what his blood sugar was earlier in the day either. The patient states that his blood sugar often fluctuates when taken at the facility. He states that he has not recently been ill and denies any complaints. PAST MEDICAL HISTORY: 1. Type 2 diabetes mellitus. 2. Macular degeneration. 3. Hyperlipidemia. 4. Sensorineural hearing loss. 5. Dyslipidemia. 6. Colon polyps. 7. Diverticulosis. 8. Pancreatic mass. 9. Dysphagia. 10.Diabetic nephropathy. 11.BPH. 12.Chronic back pain. 13.Chronic weakness. 14.History of C diff. MEDICATIONS: Please see nursing notes. He does take Lantus 10 units daily. SOCIAL HISTORY: He lives at [facility]. He is a nonsmoker and nondrinker. He is single. He does have a brother, who lives in [place]. REVIEW OF SYSTEMS: General: No fever or chills. HEENT: No sore throat, rhinorrhea, or congestion. Respiratory: No shortness of breath. Cardiac: Denies any substernal chest pain. No jaw, arm, neck, or back pain. GI: Nausea, vomiting, or diarrhea. No melena, hematochezia, or hematemesis. : Denies any dysuria. Musculoskeletal: No myalgias or arthralgias. Neurologic: No fainting, blackouts, or lightheadedness. PHYSICAL EXAMINATION: General: This is an 80-year-old male patient, who is in no acute distress. Vital Signs: Blood pressure 181/89, pulse rate is 57, respiratory rate is 20, O2 saturation is 93% on room air, temperature is 35.8. Skin: Warm, pink, and dry. HEENT: Head is normocephalic, atraumatic. Mouth, oral mucosa is moist. Lungs: Clear to auscultation. Heart: Regular rate and rhythm. Abdomen: Soft, nontender. There is no hepatosplenomegaly noted. There is no masses noted. Extremities: Without edema. LABORATORY DATA: WBCs 6.5, hemoglobin is 9.8, platelets are 214. Coags; PT is 11.2, INR is 1.0. Comprehensive metabolic panel was obtained; sodium is 140, potassium is 3.8, chloride is 104, bicarb is 29, BUN is 18, creatinine is 1.4, creatinine clearance is 49, glucose is 187, lactic acid is 1.4, calcium is 8.4, corrected calcium is 9.36, total bilirubin is 0.4. AST is 38, ALT is 29, alkaline phosphatase is 72, C-reactive protein is 0.7. ASSESSMENT: Concerns of hyperglycemia. PLAN: Again, the patient's blood sugar was mildly elevated, but within normal range for a nonfasting blood glucose. Subsequently, we will discharge the patient as he does not meet criteria for admission. Advised staff to have the patient return if he develops any complaints such as chest pain or shortness of breath, difficulties with speech or ambulation, and also advised them to calibrate their blood glucose testing machine. All questions were answered. MEHDIK: 09/11/2016 02:56:57 MODL: 09/11/2016 09:10:35 /[id number]
== END 2016-09-10 23:26 | disposition home or self-care (01) ==
LOC: VM.ED 21:50
DX: E11.40 Type 2 diabetes mellitus with diabetic neuropathy, unspecified (principal); E78.5 Hyperlipidemia, unspecified; Z79.4 Long term (current) use of insulin
CPT/HCPCS: 36415; 80053; 83605; 85025; 85610; 86140; 99282-GF; 99283

== ENCOUNTER 2017-03-20 06:26 | Inpatient (IN) | payer MEDICARE, OTHER ==
[2017-03-20] MEDS ORDERED: 50% Dextrose in Water 50 ML Syringe IV PRN (06:36)
[2017-03-20] MEDS ORDERED: 50% Dextrose in Water 50 ML Syringe ONE (06:37)
--- NOTE | 2017-03-20 06:49 | EDM.PDOC ---
<Aurora Lopez - Last Filed: 03/20/17 07:13> ED HPI GENERAL MEDICAL PROBLEM - General Chief Complaint: General Stated Complaint: lessened response, left sided weakness Time Seen by Provider: 03/20/17 06:35 - History of Present Illness INITIAL COMMENTS - FREE TEXT/NARRATIVE: Last known well was 10pm. Pt presents to the ED at 6:50. Staff contacted EMS due to pt having decrease in responsiveness. EMS found pt to have a BS of 51 and transported him to us. Medical records reviewed: Pt was seen on 01-06 for lower extremity weakness had been using a walker for more stability. Pt was set up with PT and home health. NO other medical concerns were found or addressed that day. Pt has history of HTN, DM II, hyperlipidemia, depression, CKD, - Related Data Allergies Allergy/AdvReac Type Severity Reaction Status Date / Time Ilwghpc-Gby-Toq Reductase AdvReac Jaundice Verified 03/20/17 09:48 Inhibitor Home Meds: Home Meds Aspirin [Ecotrin] 81 mg PO DAILY 07/29/14 [History] Dextromethorphan/guaiFENesin [Robitussin DM] 10 ml PO QID PRN 07/29/14 [History] Sertraline [Zoloft] 100 mg PO DAILY 07/29/14 [History] Nitroglycerin [Nitro-Dur 0.4 MG/Hr] 0.4 mg TRDERM DAILY #7 patch 08/01/14 [Rx] hydrALAZINE [Apresoline] 25 mg PO TID 08/26/14 [History] Lisinopril 40 mg PO DAILY #1 08/29/14 [Rx] Magnesium Hydroxide [Milk of Magnesia] 30 ml PO DAILY PRN 1 Days 08/29/14 [Rx] Acetaminophen [Acetaminophen Extra Strength] 1,000 mg PO Q6H PRN 05/20/15 [ History] Finasteride [Proscar] 5 mg PO BEDTIME 05/20/15 [History] Magnesium Oxide 420 mg PO DAILY 05/20/15 [History] Tamsulosin [Flomax] 0.4 mg PO DAILY 05/20/15 [History] Pantoprazole [ProTONIX] 40 mg PO DAILY@0700 #30 tab.cr 06/04/15 [Rx] Remove Patch 1 ea TRDERM BEDTIME each 07/06/15 [Rx] Chlorpheniramine Maleate 4 mg PO DAILY PRN 07/24/16 [History] Insulin Glarg,Human.Rec.Analog [Lantus] 10 unit SUBCUT BEDTIME 07/24/16 [History ] L.acidoph,Paracasei, B.lactis [Probiotic] 1 each PO DAILY 07/24/16 [History] Loperamide [Imodium] 2 mg PO Q4H PRN 07/24/16 [History] Potassium Chloride [Klor-Con M20] 20 meq PO BID 07/24/16 [History] Sodium Chloride 0.65% [[place]] 1 spray NASBOTH DAILY PRN 07/24/16 [ History] Vit A/Vit C/Vit E/Zinc/Copper [Preservision] 1 tab PO BID 07/24/16 [History] amLODIPine [Norvasc] 5 mg PO DAILY 07/24/16 [History] Ibuprofen 4 tab PO Q6HR PRN 09/10/16 [History] Metoprolol Tartrate 75 mg PO BID 03/20/17 [History] Past Medical History Cardiovascular History: Reports: Heart Failure, High Cholesterol, Hypertension Gastrointestinal History: Reports: GI Bleed Psychiatric History: Reports: Depression Endocrine/Metabolic History: Reports: Diabetes, Type II (on insulin) ED ROS GENERAL - Review of Systems Review Of Systems: Unable To Obtain ED EXAM GENERAL NO PERIP PULSE - Physical Exam Exam: See Below Exam Limited By: Language Barrier General Appearance: Lethargic Eye Exam: Bilateral Eye: PERRL Head: Atraumatic, Other (left sided facial droop ) Neck: Normal Inspection, Supple, Non-Tender, Full Range of Motion Respiratory/Chest: No Respiratory Distress, Lungs Clear, Normal Breath Sounds, No Accessory Muscle Use, Chest Non-Tender Cardiovascular: Normal Peripheral Pulses, Regular Rate, Rhythm, No Edema, No Gallop, No JVD, No Murmur, No Rub GI/Abdominal: Normal Bowel Sounds, Soft, Non-Tender, No Distention, No Abnormal Bruit (Male) Exam: Deferred Rectal (Males) Exam: Deferred Extremities: Limited Range of Motion, Other (left side weakness) Neurological: Disoriented, Abnormal Gait, Sensory/Motor Deficit Psychiatric: Other Skin Exam: Warm, Dry, Intact, No Rash Course - Vital Signs Last Recorded V/S: Last Vital Signs Temp 36.6 C 03/23/17 05:46 Pulse 58 L 03/23/17 05:46 Resp 19 03/23/17 05:46 BP 198/95 H 03/23/17 05:46 Pulse Ox 100 03/23/17 05:46 - Orders/Labs/Meds Orders: Medication Orders Acetaminophen (Tylenol) 650 mg RECTAL Q4H PRN PRN Reason: analgesia/fever Dextrose/Water (Dextrose 50% In Water) 50 ml IV ASDIRECTED PRN PRN Reason: Hypoglycemia Last Admin: 03/20/17 06:46 Dose: 50 ml Enoxaparin Sodium (Lovenox) 30 mg SUBCUT DAILY [facility] Last Admin: 03/23/17 07:34 Dose: 30 mg Admin: 03/22/17 08:42 Dose: 30 mg Admin: 03/21/17 08:27 Dose: 30 mg Admin: 03/20/17 12:34 Dose: 30 mg Hydralazine HCl (Apresoline) 10 mg IVPUSH Q6H PRN PRN Reason: Hypertension Potassium Chloride/Dextrose/Sod Cl (D5 1/2 Ns W/ 40 Meq/L Kcl) 1,000 mls @ 100 mls/hr IV ASDIRECTED [facility] Last Admin: 03/23/17 06:08 Dose: 100 mls/hr Infusion: 03/23/17 06:08 Dose: 100 mls/hr Admin: 03/22/17 20:10 Dose: 100 mls/hr Infusion: 03/22/17 16:16 Dose: 100 mls/hr Admin: 03/22/17 06:16 Dose: 100 mls/hr Infusion: 03/22/17 06:16 Dose: 100 mls/hr Admin: 03/21/17 20:35 Dose: 100 mls/hr Infusion: 03/21/17 20:26 Dose: 100 mls/hr Admin: 03/21/17 10:26 Dose: 100 mls/hr Insulin Aspart (Novolog) 0 unit SUBCUT QIDACANDBED [facility] PRN Reason: Protocol Last Admin: 03/23/17 06:09 Dose: Not Given Admin: 03/22/17 20:16 Dose: Not Given Admin: 03/22/17 18:10 Dose: 2 units Admin: 03/22/17 12:21 Dose: Admin: 03/22/17 06:16 Dose: Not Given Admin: 03/21/17 20:27 Dose: Not Given Admin: 03/21/17 18:02 Dose: Not Given Admin: 03/21/17 11:51 Dose: Admin: 03/21/17 07:46 Dose: Admin: 03/20/17 21:13 Dose: Not Given Admin: 03/20/17 18:02 Dose: Admin: 03/20/17 12:34 Dose: Miscellaneous Information (Remove Patch) 1 ea TRDERM BEDTIME [facility] Last Admin: 03/22/17 20:12 Dose: 1 ea Admin: 03/21/17 20:34 Dose: 1 ea Admin: 03/20/17 21:18 Dose: 1 ea Nitroglycerin (Nitro-Dur 0.4 Mg/Hr) 0.4 mg TRDERM DAILY [facility] Last Admin: 03/23/17 07:34 Dose: 0.4 mg Admin: 03/22/17 08:42 Dose: 0.4 mg Admin: 03/21/17 08:27 Dose: 0.4 mg Admin: 03/20/17 12:56 Dose: 0.4 mg Sodium Chloride ([place]) 0 ml NASBOTH DAILY PRN PRN Reason: Nasal Dryness Labs: Laboratory Tests 03/20/17 03/20/17 03/20/17 Range/Units 06:43 07:08 07:08 WBC 6.9 (4.0-10.0) x10^3/uL RBC 3.45 L (4.5-6.0) x10^6/uL Hgb 11.1 L (14.0-18.0) g/dL Hct 32.9 L (40.0-52.0) % MCV 95.4 H (78.0-93.0) fL MCH 32.2 H (26.0-32.0) pg MCHC 33.7 (32.0-36.0) g/dL RDW Coeff of Carlito 14.5 (10.0-15.0) % Plt Count 146 (130-400) x10^3/uL Neut % (Auto) 85.0 H (50.0-80.0) % Lymph % (Auto) 6.8 L (25.0-50.0) % [place] % (Auto) 7.8 (2.0-11.0) % Eos % (Auto) 0.1 (0.0-4.0) % Baso % (Auto) 0.3 (0.2-1.2) % PT 11.5 (9.8-11.8) SEC INR 1.1 L (2.0-3.5) POC ABG pH (7.35-7.45) POC ABG pCO2 (35-45) mmHG POC ABG pO2 (80-105) mmHG POC ABG HCO3 (22-26) mmol/L POC ABG Total CO2 (23-27) mmol/L POC ABG O2 Sat (95-98) % POC ABG Base Excess (-2-3) mmol/L POC FiO2 Sodium (136-145) mmol/L Potassium (3.5-5.1) mmol/L Chloride (98-107) mmol/L Carbon Dioxide (21-32) mmol/L BUN (7-18) mg/dL Creatinine (0.70-1.30) mg/dL Est Cr Clr Drug Dosing Estimated GFR (MDRD) Glucose (74-106) mg/dL POC Glucose 50 L (74-106) mg/dL Lactic Acid (0.4-2.0) mmol/L Calcium (8.5-10.1) mg/dL Corrected Calcium (8.5-10.1) mg/dL Total Bilirubin (0.2-1.0) mg/dL AST (15-37) U/L ALT (16-63) U/L Alkaline Phosphatase (46-116) U/L POC Troponin I (0.00-0.08) ng/mL C-Reactive Protein (<=0.9) mg/dL NT-Pro-B Natriuret Pep (<=450) pg/mL Total Protein (6.4-8.2) g/dL Albumin (3.4-5.0) g/dL Globulin Albumin/Globulin Ratio 03/20/17 03/20/17 03/20/17 Range/Units 07:08 07:08 07:17 WBC (4.0-10.0) x10^3/uL RBC (4.5-6.0) x10^6/uL Hgb (14.0-18.0) g/dL Hct (40.0-52.0) % MCV (78.0-93.0) fL MCH (26.0-32.0) pg MCHC (32.0-36.0) g/dL RDW Coeff of Carlito (10.0-15.0) % Plt Count (130-400) x10^3/uL Neut % (Auto) (50.0-80.0) % Lymph % (Auto) (25.0-50.0) % [place] % (Auto) (2.0-11.0) % Eos % (Auto) (0.0-4.0) % Baso % (Auto) (0.2-1.2) % PT (9.8-11.8) SEC INR (2.0-3.5) POC ABG pH (7.35-7.45) POC ABG pCO2 (35-45) mmHG POC ABG pO2 (80-105) mmHG POC ABG HCO3 (22-26) mmol/L POC ABG Total CO2 (23-27) mmol/L POC ABG O2 Sat (95-98) % POC ABG Base Excess (-2-3) mmol/L POC FiO2 Sodium 143 (136-145) mmol/L Potassium 3.5 (3.5-5.1) mmol/L Chloride 105 (98-107) mmol/L Carbon Dioxide 30 (21-32) mmol/L BUN 18 (7-18) mg/dL Creatinine 1.2 (0.70-1.30) mg/dL Est Cr Clr Drug Dosing TNP Estimated GFR (MDRD) 58 Glucose 183 H (74-106) mg/dL POC Glucose 124 H (74-106) mg/dL Lactic Acid 1.0 (0.4-2.0) mmol/L Calcium 8.5 (8.5-10.1) mg/dL Corrected Calcium 9.38 (8.5-10.1) mg/dL Total Bilirubin 0.6 (0.2-1.0) mg/dL AST 65 H (15-37) U/L ALT 44 (16-63) U/L Alkaline Phosphatase 71 (46-116) U/L POC Troponin I (0.00-0.08) ng/mL C-Reactive Protein 1.2 H (<=0.9) mg/dL NT-Pro-B Natriuret Pep 1361 H (<=450) pg/mL Total Protein 6.3 L (6.4-8.2) g/dL Albumin 2.9 L (3.4-5.0) g/dL Globulin 3.4 Albumin/Globulin Ratio 0.85 03/20/17 03/20/17 Range/Units 07:22 07:46 WBC (4.0-10.0) x10^3/uL RBC (4.5-6.0) x10^6/uL Hgb (14.0-18.0) g/dL Hct (40.0-52.0) % MCV (78.0-93.0) fL MCH (26.0-32.0) pg MCHC (32.0-36.0) g/dL RDW Coeff of Carlito (10.0-15.0) % Plt Count (130-400) x10^3/uL Neut % (Auto) (50.0-80.0) % Lymph % (Auto) (25.0-50.0) % [place] % (Auto) (2.0-11.0) % Eos % (Auto) (0.0-4.0) % Baso % (Auto) (0.2-1.2) % PT (9.8-11.8) SEC INR (2.0-3.5) POC ABG pH 7.444 (7.35-7.45) POC ABG pCO2 41 (35-45) mmHG POC ABG pO2 81 (80-105) mmHG POC ABG HCO3 28 H (22-26) mmol/L POC ABG Total CO2 29 H (23-27) mmol/L POC ABG O2 Sat 96 (95-98) % POC ABG Base Excess 4 H (-2-3) mmol/L POC FiO2 0.21 Sodium (136-145) mmol/L Potassium (3.5-5.1) mmol/L Chloride (98-107) mmol/L Carbon Dioxide (21-32) mmol/L BUN (7-18) mg/dL Creatinine (0.70-1.30) mg/dL Est Cr Clr Drug Dosing Estimated GFR (MDRD) Glucose (74-106) mg/dL POC Glucose (74-106) mg/dL Lactic Acid (0.4-2.0) mmol/L Calcium (8.5-10.1) mg/dL Corrected Calcium (8.5-10.1) mg/dL Total Bilirubin (0.2-1.0) mg/dL AST (15-37) U/L ALT (16-63) U/L Alkaline Phosphatase (46-116) U/L POC Troponin I 0.00 (0.00-0.08) ng/mL C-Reactive Protein (<=0.9) mg/dL NT-Pro-B Natriuret Pep (<=450) pg/mL Total Protein (6.4-8.2) g/dL Albumin (3.4-5.0) g/dL Globulin Albumin/Globulin Ratio Meds: Medications Generic Name Dose Route Start Last Admin Trade Name Freq PRN Reason Stop Dose Admin Acetaminophen 650 mg 03/20/17 10:53 Tylenol RECTAL Q4H PRN analgesia/fever Dextrose/Water 50 ml 03/20/17 06:36 03/20/17 06:46 Dextrose 50% In Water IV 50 ml ASDIRECTED PRN Administration Hypoglycemia Enoxaparin Sodium 30 mg 03/20/17 11:00 03/23/17 07:34 Lovenox SUBCUT 30 mg DAILY [facility] Administration Hydralazine HCl 10 mg 03/20/17 10:53 Apresoline IVPUSH Q6H PRN Hypertension Potassium Chloride/Dextrose/Sod Cl 1,000 mls @ 100 mls/hr 03/21/17 10:15 06:08 D5 1/2 Ns W/ 40 Meq/L Kcl IV 100 mls/hr ASDIRECTED [facility] Administration Insulin Aspart 0 unit 03/20/17 11:00 03/23/17 06:09 Novolog SUBCUT Not Given QIDACANDBED [facility] Protocol Miscellaneous Information 1 ea 03/20/17 20:00 03/22/17 20:12 Remove Patch TRDERM 1 ea BEDTIME [facility] Administration Nitroglycerin 0.4 mg 03/20/17 11:30 03/23/17 07:34 Nitro-Dur 0.4 Mg/Hr TRDERM 0.4 mg DAILY [facility] Administration Sodium Chloride 0 ml 03/20/17 11:16 [place] NASBOTH DAILY PRN Nasal Dryness Discontinued Medications Generic Name Dose Route Start Last Admin Trade Name Freq PRN Reason Stop Dose Admin Aspirin Confirm 03/20/17 07:43 03/20/17 12:23 Aspirin Administered 03/20/17 07:44 Not Given Dose 300 mg .ROUTE .STK-MED ONE Dextrose/Water Confirm 03/20/17 06:37 03/20/17 06:47 Dextrose 50% In Water Administered 03/20/17 06:38 Not Given Dose 50 ml .ROUTE .STK-MED ONE Sodium Chloride 1,000 mls @ 150 mls/hr 03/20/17 08:00 03/20/17 09:17 Normal Saline IV 150 mls/hr ASDIRECTED [facility] Administration Potassium Chloride/Dextrose/Sod Cl 1,000 mls @ 100 mls/hr 03/20/17 11:30 23:02 D5 Ns With 20 Meq Kcl IV 100 mls/hr ASDIRECTED [facility] Administration - Radiology Interpretation Free Text/Narrative:: no acute cerebral hemorrhage or edema Small vessel ischemic disease, old lacunar infarcts and atrophy CT Results Date: 03/20/17 - Re-Assessments/Exams Free Text/Narrative Re-Assessment/Exam: Re-assessment- no new changes. VSS Contact was made with Brother Kieran who agrees with the documentation provided by the nursing facility Pt is a DNR. He would like him to stay in [place] and receive care/treatment. 03/20/17 07:40 03/20/17 08:10 0745: contact made with Dr. Noe regarding admission. Per his request contact made with Xiao Hurtado pt's PCP. However unable to get ahold of her. Dr. Noe will admit to acute care. Free Text/Narrative Re-Assessment/Exam: 03/20/17 07:13 NIH score - 10 initially. Prior to D50 amp BS-50. NIH score - 12 0730 . BS 124 Departure - Departure Time of Disposition: 08:15 Disposition: Admitted As Inpatient 64 Clinical Impression: CVA, Cerebrovascular accident - Discharge Information <Jake Borrego - Last Filed: 03/23/17 08:10> ED HPI GENERAL MEDICAL PROBLEM - General Source of Information: Reports: Patient, EMS - History of Present Illness INITIAL COMMENTS - FREE TEXT/NARRATIVE: Patient brought here via ambulance due to lessened response, as well as left sided weakness. He is difficult to get a history on due to decreased responsiveness. Care of patient given over to Aurora Lopez @ 0700 Onset: Today, Sudden, Unknown/Unsure Location: Reports: Upper Extremity, Left, Lower Extremity, Left Past Medical History HEENT History: Reports: Hard of Hearing, Macular Degeneration, Other (See Below) Other HEENT History: dysphagia Cardiovascular History: Reports: Heart Failure, High Cholesterol, Hypertension Respiratory History: Reports: Pneumonia, Recurrent Gastrointestinal History: Reports: Colon Polyp, Diverticulosis, GERD, GI Bleed Other Gastrointestinal History: pancreas disease. dysphagia Genitourinary History: Reports: BPH, Diabetic Nephropathy, Prostate Disorder, Other (See Below) Other Genitourinary History: urinary retention Musculoskeletal History: Reports: Back Pain, Chronic Other Musculoskeletal History: weakness Psychiatric History: Reports: Depression Endocrine/Metabolic History: Reports: Diabetes, Type II - Infectious Disease History Infectious Disease History: Reports: C-Difficile - Past Surgical History Male Surgical History: Reports: TURP-Transurethral Resection of Prostate Social & Family History - Family History Family Medical History: Noncontributory - Tobacco Use Smoking Status *Q: Unknown Ever Smoked Second Hand Smoke Exposure: No - Alcohol Use Days Per Week of Alcohol Use: 1 Number of Drinks Per Day: 1 Total Drinks Per Week: 1 - Recreational Drug Use Recreational Drug Use: No - Living Situation & Occupation Living situation: Reports: Single, Assisted Living Occupation: Retired Course - Vital Signs Last Recorded V/S: Last Vital Signs Temp 36.6 C 03/23/17 05:46 Pulse 58 L 03/23/17 05:46 Resp 19 03/23/17 05:46 BP 198/95 H 03/23/17 05:46 Pulse Ox 100 03/23/17 05:46 - Orders/Labs/Meds Labs: Laboratory Tests 03/20/17 03/20/17 03/20/17 Range/Units 06:43 07:08 07:08 WBC 6.9 (4.0-10.0) x10^3/uL RBC 3.45 L (4.5-6.0) x10^6/uL Hgb 11.1 L (14.0-18.0) g/dL Hct 32.9 L (40.0-52.0) % MCV 95.4 H (78.0-93.0) fL MCH 32.2 H (26.0-32.0) pg MCHC 33.7 (32.0-36.0) g/dL RDW Coeff of Carlito 14.5 (10.0-15.0) % Plt Count 146 (130-400) x10^3/uL Neut % (Auto) 85.0 H (50.0-80.0) % Lymph % (Auto) 6.8 L (25.0-50.0) % [place] % (Auto) 7.8 (2.0-11.0) % Eos % (Auto) 0.1 (0.0-4.0) % Baso % (Auto) 0.3 (0.2-1.2) % PT 11.5 (9.8-11.8) SEC INR 1.1 L (2.0-3.5) POC ABG pH (7.35-7.45) POC ABG pCO2 (35-45) mmHG POC ABG pO2 (80-105) mmHG POC ABG HCO3 (22-26) mmol/L POC ABG Total CO2 (23-27) mmol/L POC ABG O2 Sat (95-98) % POC ABG Base Excess (-2-3) mmol/L POC FiO2 Sodium (136-145) mmol/L Potassium (3.5-5.1) mmol/L Chloride (98-107) mmol/L Carbon Dioxide (21-32) mmol/L BUN (7-18) mg/dL Creatinine (0.70-1.30) mg/dL Est Cr Clr Drug Dosing Estimated GFR (MDRD) Glucose (74-106) mg/dL POC Glucose 50 L (74-106) mg/dL Lactic Acid (0.4-2.0) mmol/L Calcium (8.5-10.1) mg/dL Corrected Calcium (8.5-10.1) mg/dL Total Bilirubin (0.2-1.0) mg/dL AST (15-37) U/L ALT (16-63) U/L Alkaline Phosphatase (46-116) U/L POC Troponin I (0.00-0.08) ng/mL C-Reactive Protein (<=0.9) mg/dL NT-Pro-B Natriuret Pep (<=450) pg/mL Total Protein (6.4-8.2) g/dL Albumin (3.4-5.0) g/dL Globulin Albumin/Globulin Ratio 01/03/20/17 03/20/17 Range/Units 07:08 07:08 07:17 WBC (4.0-10.0) x10^3/uL RBC (4.5-6.0) x10^6/uL Hgb (14.0-18.0) g/dL Hct (40.0-52.0) % MCV (78.0-93.0) fL MCH (26.0-32.0) pg MCHC (32.0-36.0) g/dL RDW Coeff of Carlito (10.0-15.0) % Plt Count (130-400) x10^3/uL Neut % (Auto) (50.0-80.0) % Lymph % (Auto) (25.0-50.0) % [place] % (Auto) (2.0-11.0) % Eos % (Auto) (0.0-4.0) % Baso % (Auto) (0.2-1.2) % PT (9.8-11.8) SEC INR (2.0-3.5) POC ABG pH (7.35-7.45) POC ABG pCO2 (35-45) mmHG POC ABG pO2 (80-105) mmHG POC ABG HCO3 (22-26) mmol/L POC ABG Total CO2 (23-27) mmol/L POC ABG O2 Sat (95-98) % POC ABG Base Excess (-2-3) mmol/L POC FiO2 Sodium 143 (136-145) mmol/L Potassium 3.5 (3.5-5.1) mmol/L Chloride 105 (98-107) mmol/L Carbon Dioxide 30 (21-32) mmol/L BUN 18 (7-18) mg/dL Creatinine 1.2 (0.70-1.30) mg/dL Est Cr Clr Drug Dosing TNP Estimated GFR (MDRD) 58 Glucose 183 H (74-106) mg/dL POC Glucose 124 H (74-106) mg/dL Lactic Acid 1.0 (0.4-2.0) mmol/L Calcium 8.5 (8.5-10.1) mg/dL Corrected Calcium 9.38 (8.5-10.1) mg/dL Total Bilirubin 0.6 (0.2-1.0) mg/dL AST 65 H (15-37) U/L ALT 44 (16-63) U/L Alkaline Phosphatase 71 (46-116) U/L POC Troponin I (0.00-0.08) ng/mL C-Reactive Protein 1.2 H (<=0.9) mg/dL NT-Pro-B Natriuret Pep 1361 H (<=450) pg/mL Total Protein 6.3 L (6.4-8.2) g/dL Albumin 2.9 L (3.4-5.0) g/dL Globulin 3.4 Albumin/Globulin Ratio 0.85 03/20/17 03/20/17 Range/Units 07:22 07:46 WBC (4.0-10.0) x10^3/uL RBC (4.5-6.0) x10^6/uL Hgb (14.0-18.0) g/dL Hct (40.0-52.0) % MCV (78.0-93.0) fL MCH (26.0-32.0) pg MCHC (32.0-36.0) g/dL RDW Coeff of Carlito (10.0-15.0) % Plt Count (130-400) x10^3/uL Neut % (Auto) (50.0-80.0) % Lymph % (Auto) (25.0-50.0) % [place] % (Auto) (2.0-11.0) % Eos % (Auto) (0.0-4.0) % Baso % (Auto) (0.2-1.2) % PT (9.8-11.8) SEC INR (2.0-3.5) POC ABG pH 7.444 (7.35-7.45) POC ABG pCO2 41 (35-45) mmHG POC ABG pO2 81 (80-105) mmHG POC ABG HCO3 28 H (22-26) mmol/L POC ABG Total CO2 29 H (23-27) mmol/L POC ABG O2 Sat 96 (95-98) % POC ABG Base Excess 4 H (-2-3) mmol/L POC FiO2 0.21 Sodium (136-145) mmol/L Potassium (3.5-5.1) mmol/L Chloride (98-107) mmol/L Carbon Dioxide (21-32) mmol/L BUN (7-18) mg/dL Creatinine (0.70-1.30) mg/dL Est Cr Clr Drug Dosing Estimated GFR (MDRD) Glucose (74-106) mg/dL POC Glucose (74-106) mg/dL Lactic Acid (0.4-2.0) mmol/L Calcium (8.5-10.1) mg/dL Corrected Calcium (8.5-10.1) mg/dL Total Bilirubin (0.2-1.0) mg/dL AST (15-37) U/L ALT (16-63) U/L Alkaline Phosphatase (46-116) U/L POC Troponin I 0.00 (0.00-0.08) ng/mL C-Reactive Protein (<=0.9) mg/dL NT-Pro-B Natriuret Pep (<=450) pg/mL Total Protein (6.4-8.2) g/dL Albumin (3.4-5.0) g/dL Globulin Albumin/Globulin Ratio
[2017-03-20] MEDS ORDERED: Aspirin 300 MG Supp ONE (07:43)
[2017-03-20 07:48] LABS: CHLORIDE,CL 105 mmol/L (98-107); SODIUM,NA 143 mmol/L (136-145)
[2017-03-20] MEDS ORDERED: Sodium Chloride 0.9% 1,000 ML IV SCH (08:00)
[2017-03-20] MEDS ORDERED: Acetaminophen 650 MG Supp RECTAL PRN (10:53)
[2017-03-20] MEDS ORDERED: hydrALAZINE 20 MG/ML SDV IVPUSH PRN (10:53)
[2017-03-20] MEDS ORDERED: Sodium Chloride 0.65% Nasal Spray 45 ML Bottle NASBOTH PRN (11:16)
[2017-03-20] MEDS: Dextrose 5%-0.9% NaCl with KCl 1,000 ML IV SCH ×2 (12:33→23:02)
[2017-03-20] MEDS: Insulin Aspart 100 Units/ML 3 ML Pen SUBCUT SCH ×3 (12:34→21:13)
[2017-03-20] MEDS: Enoxaparin 30 MG/0.3 ML Syringe SUBCUT SCH (12:34)
[2017-03-20] MEDS: Nitroglycerin 0.4 MG/HR Transdermal Patch TRDERM SCH (12:56)
--- NOTE | 2017-03-20 20:26 | HP ---
REASON FOR ADMISSION: Left-sided weakness. HISTORY: This is an 81-year-old white male, a resident of [facility] in [place], was found by staff this morning to be less responsive, and to have left-sided weakness. They contacted EMS. EMS found a blood sugar of 51. They transported him to the ED where he was given some D50, which brought up his blood sugar, but did change his level of responsiveness. He was found to have left-sided weakness and diagnosed with a right CVA and subsequently admitted. Unable to obtain any useful past medical history and review of systems from this patient because of his aphasia. Information obtained from old records from [facility]. PAST MEDICAL HISTORY: 1. Diabetes mellitus type 2, on insulin. 2. Chronic kidney disease, stage unspecified. 3. Hypertension. 4. Hyperlipidemia. 5. Depression. 6. BPH with urinary retention, status post TURP. 7. History of C. difficile diarrhea. MEDICATIONS: 1. Ibuprofen p.r.n. 2. Potassium 20 mEq b.i.d. 3. Metoprolol 75 mg b.i.d. 4. Lisinopril 40 mg daily. 5. Aspirin 81 mg daily. 6. Tylenol p.r.n. 7. Finasteride 5 mg at bedtime. 8. Robitussin DM p.r.n. 9. Chlorpheniramine maleate 4 mg daily p.r.n. 10.Imodium p.r.n. 11.Probiotic daily. 12.Lantus insulin 10 units subcu at bedtime. 13.Protonix 40 mg daily. 14.Nitroglycerin 0.4 mg patch daily. 15.Magnesium daily. 16.Milk of magnesia p.r.n. 17.Saline nasal spray p.r.n. 18.Zoloft 100 mg daily. 19.Multivitamin daily. 20.Flomax 0.4 mg daily. 21.Amlodipine 5 mg daily. 22.Hydralazine 25 mg t.i.d. ALLERGIES AND SENSITIVITIES: statins. HABITS: Tobacco use, negative. Alcohol use, occasional. REVIEW OF SYSTEMS: Not obtainable due to the patient's current condition. OBJECTIVE: General: He is awake, attempts to answer questions, but he has a very weak voice, difficulty hearing, he is aphasic. Vital Signs: Temperature 97.2, pulse of 51, blood pressure is 192/82, respirations 16, and oxygen saturations 98%. HEENT: Pupils unremarkable. Extraocular motions appear to be intact. TMs unremarkable. Throat is clear. Dry. Neck: No adenopathy. Heart: Regular rate and rhythm. No murmur heard. Lungs: Clear to auscultation. Abdomen: Soft and nontender. No masses palpable. No hepatosplenomegaly noted. Rectal: Not done. Extremities: He has significant weakness in both the left upper and lower extremities. 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 He did have a little bit of movement in the left leg, but minimal. The right side is unremarkable with good strength. Sensation is intact. Neurologic: Deep tendon reflexes are symmetrical. LABORATORY DATA: White count 6.9. Hemoglobin 11.1. INR 1.1. ABG shows a pH of 7.44, pCO2 of 41, pO2 of 81, potassium 3.5, creatinine 1.2, GFR 58, glucose 183. Lactic acid is normal. LFTs show mild elevation of his AST at 65, CRP was 1.2, ProBNP was 1361, albumin of 2.9. EKG showed a rate of 51 with a left bundle branch block. His NIH stroke score in the ER was 10 initially and [address] scan showed no acute hemorrhage or edema. It showed small vessel ischemic disease with old lacunar infarcts and atrophy. His swallowing screen done by nursing staff. He was unable to swallow water without choking, therefore failed his swallowing screen. ASSESSMENT: 1. Right cerebrovascular accident with left-sided weakness and aphasia. 2. Hypertension. 3. Diabetes mellitus type 2. 4. Chronic kidney disease. 5. Depression. PLAN: The patient will be admitted to acute care status. Dr. Chery Hurtado is his primary provider. We will obtain a speech therapy evaluation and a swallowing study. Also PT and OT eval and Social Service evaluation will most likely need to be placed on long-term care. We will give him some IV fluids, monitor his Accu-Cheks, monitor his blood pressure, hold his oral medications at this time because of his difficulty with swallowing, and manage with either IV or rectal medications as needed. FM: 03/20/2017 10:52:52 MODL: 03/20/2017 20:20:40 /[id number] JASPER
[2017-03-21] MEDS: Insulin Aspart 100 Units/ML 3 ML Pen SUBCUT SCH ×4 (07:46→20:27)
[2017-03-21] MEDS: Nitroglycerin 0.4 MG/HR Transdermal Patch TRDERM SCH (08:27)
[2017-03-21] MEDS: Enoxaparin 30 MG/0.3 ML Syringe SUBCUT SCH (08:27)
[2017-03-21 08:37] LABS: CHLORIDE,CL 108 mmol/L (98-107); SODIUM,NA 145 mmol/L (136-145)
[2017-03-21] MEDS: D5 1/2 NS w/ 40 mEq/L KCl 1,000 ML IV SCH ×2 (10:26→20:35)
[2017-03-22] MEDS: Insulin Aspart 100 Units/ML 3 ML Pen SUBCUT SCH ×4 (06:16→20:16)
[2017-03-22] MEDS: D5 1/2 NS w/ 40 mEq/L KCl 1,000 ML IV SCH ×2 (06:16→20:10)
[2017-03-22 07:21] LABS: CHLORIDE,CL 109 mmol/L (98-107); SODIUM,NA 144 mmol/L (136-145)
--- NOTE | 2017-03-22 08:04 | PN ---
Progress Note for KYRA GAMBLE Date: 03/21/2017 Room #: VM.201 SUBJECTIVE: An 81-year-old white male admitted yesterday with acute right CVA with left hemiparesis, moderate with aphasia. He is about the same today. He does try to speak more, but he is very soft and difficult to understand. He continues to have some movement in the left upper extremity and may be a little bit better hydrogen cell tender strength than yesterday. Minimal movement in the left lower extremity. OBJECTIVE: General: He is alert, awake, attempts to talk, but pretty much aphasic. Heart: Regular rate and rhythm. Lungs: Clear. Extremities: Some movement in the left upper extremity and minimal movement in the left lower extremity. LABORATORY DATA: Today shows a white count of 7.8 and hemoglobin 12.0. Electrolytes, potassium is down to 3.2. Glucose is 148. ASSESSMENT: 1. Right cerebrovascular accident with left hemiparesis and aphasia. 2. Hypokalemia. 3. Swallowing difficulty. 4. Diabetes mellitus. PLAN: 1. Continue present management. Change IV fluids to D5 one-half normal saline with 40 potassium to help with his hypokalemia. 2. Repeat BMP in the morning. 3. Start his assessments tomorrow. Dr. Chery Hurtado is his primary provider. FM: 03/21/2017 10:14:24 MODL: 03/21/2017 10:37:25 /[id number]
[2017-03-22] MEDS: Nitroglycerin 0.4 MG/HR Transdermal Patch TRDERM SCH (08:42)
[2017-03-22] MEDS: Enoxaparin 30 MG/0.3 ML Syringe SUBCUT SCH (08:42)
--- NOTE | 2017-03-22 17:15 | PCM.PN ---
- General Info Date of Service: 03/22/17 Admission Dx/Problem (Free Text): 81 year old male admitted on Wednesday with stroke symptoms. He failed the bedside swallow test and subsequently has been NPO. He has been receiving IV fluids. Subjective Update: Patient awakens to light touch. However he is unable to follow commands. - Review of Systems General: Reports: Other (Unobtainable secondary to aphasia) - Patient Data Vitals - Most Recent: Last Vital Signs Temp 36.6 C 03/22/17 14:00 Pulse 85 03/22/17 14:00 Resp 20 03/22/17 05:54 BP 192/90 H 03/22/17 14:00 Pulse Ox 96 03/22/17 14:00 Weight - Most Recent: 65.227 kg I&O - Last 24 Hours: Intake & Output 03/22/17 03/22/17 03/22/17 06:59 14:59 22:59 Intake Total 1207 0 Balance 1207 0 Lab Results Last 24 Hours: Laboratory Results - last 24 hr 03/21/17 03/22/17 03/22/17 Range/Units 19:53 05:57 06:30 Sodium 144 (136-145) mmol/L Potassium 3.5 (3.5-5.1) mmol/L Chloride 109 H (98-107) mmol/L Carbon Dioxide 25 (21-32) mmol/L BUN 13 (7-18) mg/dL Creatinine 0.9 (0.70-1.30) mg/dL Est Cr Clr Drug Dosing TNP Estimated GFR (MDRD) > 60 Glucose 164 H (74-106) mg/dL POC Glucose 174 H 166 H (74-106) mg/dL Calcium 8.2 L (8.5-10.1) mg/dL Med Orders - Current: Current Medications Acetaminophen (Tylenol) 650 mg RECTAL Q4H PRN PRN Reason: analgesia/fever Dextrose/Water (Dextrose 50% In Water) 50 ml IV ASDIRECTED PRN PRN Reason: Hypoglycemia Last Admin: 03/20/17 06:46 Dose: 50 ml Enoxaparin Sodium (Lovenox) 30 mg SUBCUT DAILY [facility] Last Admin: 03/22/17 08:42 Dose: 30 mg Hydralazine HCl (Apresoline) 10 mg IVPUSH Q6H PRN PRN Reason: Hypertension Potassium Chloride/Dextrose/Sod Cl (D5 1/2 Ns W/ 40 Meq/L Kcl) 1,000 mls @ 100 mls/hr IV ASDIRECTED [facility] Last Admin: 03/22/17 06:16 Dose: 100 mls/hr Insulin Aspart (Novolog) 0 unit SUBCUT QIDACANDBED [facility] PRN Reason: Protocol Last Admin: 03/22/17 12:21 Dose: Not Given Miscellaneous Information (Remove Patch) 1 ea TRDERM BEDTIME [facility] Last Admin: 03/21/17 20:34 Dose: 1 ea Nitroglycerin (Nitro-Dur 0.4 Mg/Hr) 0.4 mg TRDERM DAILY [facility] Last Admin: 03/22/17 08:42 Dose: 0.4 mg Sodium Chloride ([place] Nasal [place]) 0 ml NASBOTH DAILY PRN PRN Reason: Nasal Dryness Discontinued Medications Aspirin (Aspirin) Confirm Administered Dose 300 mg .ROUTE .STK-MED ONE Stop: 03/20/17 07:44 Last Admin: 03/20/17 12:23 Dose: Not Given Dextrose/Water (Dextrose 50% In Water) Confirm Administered Dose 50 ml .ROUTE .STK-MED ONE Stop: 03/20/17 06:38 Last Admin: 03/20/17 06:47 Dose: Not Given Sodium Chloride (Normal Saline) 1,000 mls @ 150 mls/hr IV ASDIRECTED [facility] Last Admin: 03/20/17 09:17 Dose: 150 mls/hr Potassium Chloride/Dextrose/Sod Cl (D5 Ns With 20 Meq Kcl) 1,000 mls @ 100 mls/ hr IV ASDIRECTED [facility] Last Admin: 03/20/17 23:02 Dose: 100 mls/hr - Exam General: Alert Lungs: Clear to Auscultation Cardiovascular: Regular Rate Neurological: No: Normal Speech, Strength Equal Bilateral - Problem List & Annotations (1) CVA, Cerebrovascular accident SNOMED Code(s): 828561590 Code(s): I63.9 - CEREBRAL INFARCTION, UNSPECIFIED Status: Acute Current Visit: Yes (2) Aphasia SNOMED Code(s): 28354412 Code(s): R47.01 - APHASIA Status: Acute Current Visit: Yes (3) Dysphagia SNOMED Code(s): 07707488 Code(s): R13.10 - DYSPHAGIA, UNSPECIFIED Status: Acute Current Visit: No Qualifiers: Dysphagia type: unspecified Qualified Code(s): R13.10 - Dysphagia, unspecified - Problem List Review Problem List Initiated/Reviewed/Updated: Yes - My Orders Last 24 Hours: My Active Orders 03/22/17 08:15 Swallowing Function w Video [CR] Urgent 03/22/17 12:58 Consult to Hospice [CONS] Routine - Assessment Assessment:: Cerebrovascular accident with subsequent aphasia as well as dysphagia and apparent left-sided weakness. Hypertension-controlled Diabetes mellitus type 2 controlled Underlying dementia - vascular - Plan Plan:: Video swallow study was ordered and obtained earlier today. The patient was not able to follow commands to swallow. Changing consistency did not seem to impact this. When he did have a random swallow he had considerable aspiration. Results of this study were discussed with the patient's power of employment law attorney. He states that the patient did not want any artificial nutrition. This would be consistent with my conversations with the patient in the past as well. Subsequently hospice will be consulted. We will anticipate discharge to alf facility as soon as bed is available.
[2017-03-23] MEDS: D5 1/2 NS w/ 40 mEq/L KCl 1,000 ML IV SCH (06:08)
[2017-03-23] MEDS: Insulin Aspart 100 Units/ML 3 ML Pen SUBCUT SCH ×3 (06:09→16:39)
[2017-03-23] MEDS: Nitroglycerin 0.4 MG/HR Transdermal Patch TRDERM SCH (07:34)
[2017-03-23] MEDS: Enoxaparin 30 MG/0.3 ML Syringe SUBCUT SCH (07:34)
[2017-03-23 14:27] VITALS: BP 180/93
[2017-03-24] MEDS: Nitroglycerin 0.4 MG/HR Transdermal Patch TRDERM SCH (07:51)
[2017-03-24] MEDS: Enoxaparin 30 MG/0.3 ML Syringe SUBCUT SCH ×2 (07:51→07:54)
--- NOTE | 2017-03-24 08:10 | PCM.PN ---
- General Info Date of Service: 03/23/17 Admission Dx/Problem (Free Text): 81 year old male admitted on Wednesday with stroke symptoms. He failed the bedside swallow test and subsequently has been NPO. He has been receiving IV fluids. - Patient Data Vitals - Most Recent: Last Vital Signs Temp 36.8 C 03/23/17 14:00 Pulse 59 L 03/23/17 14:00 Resp 19 03/23/17 05:46 BP 180/93 H 03/23/17 14:00 Pulse Ox 98 03/23/17 14:00 Weight - Most Recent: 65.227 kg I&O - Last 24 Hours: Intake & Output 03/23/17 03/24/17 03/24/17 22:59 06:59 14:59 Intake Total 0 Balance 0 Lab Results Last 24 Hours: Laboratory Results - last 24 hr 03/23/17 03/23/17 Range/Units 10:57 16:29 POC Glucose 147 H 105 (74-106) mg/dL Med Orders - Current: Current Medications Acetaminophen (Tylenol) 650 mg RECTAL Q4H PRN PRN Reason: analgesia/fever Dextrose/Water (Dextrose 50% In Water) 50 ml IV ASDIRECTED PRN PRN Reason: Hypoglycemia Last Admin: 03/20/17 06:46 Dose: 50 ml Enoxaparin Sodium (Lovenox) 30 mg SUBCUT DAILY [facility] Last Admin: 03/24/17 07:54 Dose: Not Given Hydralazine HCl (Apresoline) 10 mg IVPUSH Q6H PRN PRN Reason: Hypertension Miscellaneous Information (Remove Patch) 1 ea TRDERM BEDTIME [facility] Last Admin: 03/23/17 20:15 Dose: 1 ea Nitroglycerin (Nitro-Dur 0.4 Mg/Hr) 0.4 mg TRDERM DAILY [facility] Last Admin: 03/24/17 07:51 Dose: 0.4 mg Sodium Chloride ([place] Nasal [place]) 0 ml NASBOTH DAILY PRN PRN Reason: Nasal Dryness Discontinued Medications Aspirin (Aspirin) Confirm Administered Dose 300 mg .ROUTE .STK-MED ONE Stop: 03/20/17 07:44 Last Admin: 03/20/17 12:23 Dose: Not Given Dextrose/Water (Dextrose 50% In Water) Confirm Administered Dose 50 ml .ROUTE .STK-MED ONE Stop: 03/20/17 06:38 Last Admin: 03/20/17 06:47 Dose: Not Given Sodium Chloride (Normal Saline) 1,000 mls @ 150 mls/hr IV ASDIRECTED [facility] Last Admin: 03/20/17 09:17 Dose: 150 mls/hr Potassium Chloride/Dextrose/Sod Cl (D5 Ns With 20 Meq Kcl) 1,000 mls @ 100 mls/ hr IV ASDIRECTED [facility] Last Admin: 03/20/17 23:02 Dose: 100 mls/hr Potassium Chloride/Dextrose/Sod Cl (D5 1/2 Ns W/ 40 Meq/L Kcl) 1,000 mls @ 100 mls/hr IV ASDIRECTED [facility] Last Admin: 03/23/17 06:08 Dose: 100 mls/hr Insulin Aspart (Novolog) 0 unit SUBCUT QIDACANDBED [facility] PRN Reason: Protocol Last Admin: 03/23/17 16:39 Dose: Not Given - Exam General: Lethargic Lungs: Clear to Auscultation Cardiovascular: Regular Rate Back Exam: Normal Inspection Skin: Warm, Dry - Problem List & Annotations (1) CVA, Cerebrovascular accident SNOMED Code(s): 749640733 Code(s): I63.9 - CEREBRAL INFARCTION, UNSPECIFIED Status: Acute Current Visit: Yes (2) Aphasia SNOMED Code(s): 06248919 Code(s): R47.01 - APHASIA Status: Acute Current Visit: Yes (3) Dysphagia SNOMED Code(s): 99181159 Code(s): R13.10 - DYSPHAGIA, UNSPECIFIED Status: Acute Current Visit: No Qualifiers: Dysphagia type: unspecified Qualified Code(s): R13.10 - Dysphagia, unspecified - Problem List Review Problem List Initiated/Reviewed/Updated: Yes - My Orders Last 24 Hours: My Active Orders 03/23/17 13:24 Discontinue Saline Lock [Peripheral IV Discontinue] [OM.PC] Routine - Assessment Assessment:: Cerebrovascular accident with subsequent aphasia as well as dysphagia and apparent left-sided weakness. Hypertension Diabetes mellitus type 2 controlled Underlying dementia - vascular - Plan Plan:: patient's advanced directives reviewed. This states that he does not want IV fluids or any artificial nutrition. Thus IV fluids will be stopped. Family conference with patient's brother and Kieran BULLOCK and his along with Shelley. Pt will be transferred to [facility] with hospice services. Anticipate transfer in AM. Pt will be placed on palliative cares. He is actively dying.
--- NOTE | 2017-03-24 08:19 | PCM.DCSUM1 ---
Discharge Summary - Hospital Course Free Text/Narrative:: 81 year old male admitted to [facility] after being found minimally responsive at AL facility. Pt with apparent stroke. Presents with global weakness and aphasia. - Discharge Data Discharge Date: 03/24/17 Discharge Disposition: DC/Tfer to SNF 03 Condition: Good - Discharge Diagnosis/Problem(s) (1) CVA, Cerebrovascular accident SNOMED Code(s): 189913615 ICD Code: I63.9 - CEREBRAL INFARCTION, UNSPECIFIED Status: Acute Current Visit: Yes (2) Aphasia SNOMED Code(s): 08162999 ICD Code: R47.01 - APHASIA Status: Acute Current Visit: Yes (3) Dysphagia SNOMED Code(s): 23323908 ICD Code: R13.10 - DYSPHAGIA, UNSPECIFIED Status: Acute Current Visit: No Qualifiers: Dysphagia type: unspecified Qualified Code(s): R13.10 - Dysphagia, unspecified - Patient Summary/Data Consults: Consultations 03/20/17 10:53 OT Evaluation and Treatment [CONS] Routine PT Evaluation and Treatment [CONS] Routine 03/20/17 11:04 Consult to Case Management [CONS] Routine DES[employer] CHIEF Evaluation and Treatment [CONS] Routine 03/22/17 12:58 Consult to Hospice [CONS] Routine Hospital Course: Patient was admitted to hospital. His level of awareness varied throughout his stay. At times was unable to follow commands. Patient failed bedside swallow eval and thus was placed NPO. IV fluids initiated Patient's vital signs were monitored throughout his stay. His blood pressure was slightly elevated. He was unable to swallow his medications. On Day 2 of hospitalization video swallow was obtained. pt was unable to swallow at all on command. Liquids of varying consistency were tried and failed. Pt was observed with one spontaneous swallow and aspiration was noted. Patient's advanced directives were located and reviewed. He desires no artificial feedings or IV fluids. Thus these were stopped. Hospice was consulted. Arrangements made for patient to be transferred to [facility] with hospice cares. - Discharge Plan Home Medications: Home Meds Remove Patch 1 ea TRDERM BEDTIME each 07/06/15 [Rx] Sodium Chloride 0.65% [[place] Nasal [place]] 1 spray NASBOTH DAILY PRN 07/24/16 [ History] Remove Patch 1 ea TRDERM BEDTIME each 03/24/17 [Rx] Forms: ED Department Discharge Referrals: Chery Hurtado DO [Primary Care Provider] - - Discharge Summary/Plan Comment DC Time >30 min.: No Discharge Summary/Plan Comment: Transfer to [facility] with Hospice cares. - Patient Data Vitals - Most Recent: Last Vital Signs Temp 36.8 C 03/23/17 14:00 Pulse 59 L 03/23/17 14:00 Resp 19 03/23/17 05:46 BP 180/93 H 03/23/17 14:00 Pulse Ox 98 03/23/17 14:00 Weight - Most Recent: 65.227 kg I&O - Last 24 hours: Intake & Output 03/23/17 03/24/17 03/24/17 22:59 06:59 14:59 Intake Total 0 Balance 0 Lab Results - Last 24 hrs: Laboratory Results - last 24 hr 03/23/17 03/23/17 Range/Units 10:57 16:29 POC Glucose 147 H 105 (74-106) mg/dL Med Orders - Current: Current Medications Acetaminophen (Tylenol) 650 mg RECTAL Q4H PRN PRN Reason: analgesia/fever Dextrose/Water (Dextrose 50% In Water) 50 ml IV ASDIRECTED PRN PRN Reason: Hypoglycemia Last Admin: 03/20/17 06:46 Dose: 50 ml Enoxaparin Sodium (Lovenox) 30 mg SUBCUT DAILY [facility] Last Admin: 03/24/17 07:54 Dose: Not Given Hydralazine HCl (Apresoline) 10 mg IVPUSH Q6H PRN PRN Reason: Hypertension Miscellaneous Information (Remove Patch) 1 ea TRDERM BEDTIME [facility] Last Admin: 03/23/17 20:15 Dose: 1 ea Nitroglycerin (Nitro-Dur 0.4 Mg/Hr) 0.4 mg TRDERM DAILY [facility] Last Admin: 03/24/17 07:51 Dose: 0.4 mg Sodium Chloride ([place] Nasal [place]) 0 ml NASBOTH DAILY PRN PRN Reason: Nasal Dryness Discontinued Medications Aspirin (Aspirin) Confirm Administered Dose 300 mg .ROUTE .STK-MED ONE Stop: 03/20/17 07:44 Last Admin: 03/20/17 12:23 Dose: Not Given Dextrose/Water (Dextrose 50% In Water) Confirm Administered Dose 50 ml .ROUTE .STK-MED ONE Stop: 03/20/17 06:38 Last Admin: 03/20/17 06:47 Dose: Not Given Sodium Chloride (Normal Saline) 1,000 mls @ 150 mls/hr IV ASDIRECTED [facility] Last Admin: 03/20/17 09:17 Dose: 150 mls/hr Potassium Chloride/Dextrose/Sod Cl (D5 Ns With 20 Meq Kcl) 1,000 mls @ 100 mls/ hr IV ASDIRECTED [facility] Last Admin: 03/20/17 23:02 Dose: 100 mls/hr Potassium Chloride/Dextrose/Sod Cl (D5 1/2 Ns W/ 40 Meq/L Kcl) 1,000 mls @ 100 mls/hr IV ASDIRECTED [facility] Last Admin: 03/23/17 06:08 Dose: 100 mls/hr Insulin Aspart (Novolog) 0 unit SUBCUT QIDACANDBED [facility] PRN Reason: Protocol Last Admin: 03/23/17 16:39 Dose: Not Given *Q Meaningful Use (DIS) - VTE *Q VTE Criteria *Q: - Stroke *Q Stroke Criteria *Q: - AMI *Q AMI Criteria *Q:
== END 2017-03-24 11:10 | DRG 66 ==
LOC: VM.ED 06:26 → VM.MS 08:07
PROVIDERS: ADMIT Family Medicine; ATTEND Family Medicine
DX: I63.9 Cerebral infarction, unspecified (principal); R47.01 Aphasia; R53.1 Weakness; G81.94 Hemiplegia, unspecified affecting left nondominant side; R13.10 Dysphagia, unspecified; I12.9 Hypertensive chronic kidney disease with stage 1 through stage 4 chronic kidney disease, or unspecified chronic kidney disease; E11.22 Type 2 diabetes mellitus with diabetic chronic kidney disease; N18.9 Chronic kidney disease, unspecified; Z79.4 Long term (current) use of insulin; Z66 Do not resuscitate; Z51.5 Encounter for palliative care; E78.5 Hyperlipidemia, unspecified; F32.9 Major depressive disorder, single episode, unspecified; Z87.01 Personal history of pneumonia (recurrent); N40.1 Benign prostatic hyperplasia with lower urinary tract symptoms; R33.8 Other retention of urine; M54.9 Dorsalgia, unspecified; G89.29 Other chronic pain; H91.90 Unspecified hearing loss, unspecified ear; H35.30 Unspecified macular degeneration; Z86.19 Personal history of other infectious and parasitic diseases; Z79.82 Long term (current) use of aspirin; Z88.8 Allergy status to other drugs, medicaments and biological substances
CPT/HCPCS: 36415; 36600; 70450; 74230; 80048; 80053; 82803; 82962; 83605; 83880; 84484; 85025; 85610; 86140; 92526-GN; 92611-GN; 93005; 96374; 97110-GP; 97112-GO; 97161-GP; 97165-GO; 97530-GP; 99284-GF; 99285; A9270-GY; J1650; J1815-GY; J3480; J7030; J7060